=== PATIENT | female | born 1950 ===

== ENCOUNTER 2017-03-17 16:23 | Inpatient (IN) | payer OTHER ==
[2017-03-17] VITALS (7 sets, daily range): BP systolic 116–131; BP diastolic 60–71
[~2017-03-17] VITALS: Ht 157.5 cm; Wt 66.5 kg
--- NOTE | ~2017-03-17 | EC ---
PATIENT:STEVE HANCOCK DATE OF SERVICE: 03/17/17 SEX: F MEDICAL RECORD: [id number] DATE OF : 54 LOCATION:[place] [address] AGE OF PATIENT: 66 ADMISSION DATE: 03/17/17 REFERRING PHYSICIAN: INTERPRETING PHYSICIAN: DAMIÁN LLANOS M.D. ECHOCARDIOGRAM REPORT ECHO CHARGES 4 ECHO COMPLETE CLINICAL DIAGNOSIS: ACUTE ANTERIOR MS ECHOCARDIOGRAPHIC MEASUREMENTS (adult normal given) AC root (d.<3.7cm) 2.7 LV Septum d (<1.2 cm> 1.4 Valve Excursion 1.4 LV Septum (systole) 1.6 Left Atria (s.<4.0cm> 3.1 LVPW d(<1.2cm) 1.4 RV (d.<2.3cm) 2.8 LVPW (sytole) 1.5 LV diastole(<5.6CM) 4.6 MV E-F(>70mm/sec) LV systole 3.5 LVOT Diameter 1.7 MV exc.(>10mm) 1.3 Est.ejection fraction (50-75%) Pericardial Effusion N DOPPLER: LVIT A 93.0 E 52.0 LA RVSP 17 LVOT 96 AOP1/2T Asc. Ao 126 RVOT 85 RA PA 130 AV Gradient Peak 6.33 AV Mean 3.15 AV Area 1.5 MV Gradient Peak 4.37 MV Mean 1.33 MV Area COMMENTS: Vp Project: Radha GARCIA Director Data Management:2 Dr. Llanos TAPE# PACS DATE OF SERVICE: 03/18/2017 INDICATION: Status post anterior wall myocardial infarction. DESCRIPTION: Left ventricle demonstrates left ventricular hypertrophy. The septum and apex are moderately hypokinetic. Estimated ejection fraction is in the order of 40%. Mitral valve is structurally normal. There is no regurgitation or prolapse seen. Left atrium is normal size. The aortic valve is trileaflet. I do not see stenosis or regurgitation. Right ventricle is mildly dilated. Tricuspid valve is structurally normal. There is trivial ECHOCARDIOGRAM REPORT [id number] STEVE HANCOCK regurgitation seen. Right atrium is normal size. There is no pericardial effusion noted. IMPRESSION: 1. Left ventricular hypertrophy with moderate left ventricular dysfunction. Ejection fraction of 40%. The apex and septum are hypokinetic consistent with recent myocardial infarction. 2. Trivial tricuspid regurgitation. TRANSINT:[id number] Voice Confirmation ID: [id number] DOCUMENT ID: [id number] DAMIÁN LLANOS M.D. CC: [id number] DICTATION DATE: 03/18/17 1159 WOMEN'S GARMENT FITTER: 03/18/17 1206 ADM IN [facility] [address] [place] [id number]
--- NOTE | ~2017-03-17 | HEMODYNAMI ---
PATIENT:STEVE HANCOCK MEDICAL RECORD: [id number] : 54 LOCATION:[facility]# [id number] ADMISSION DATE: 03/17/17 Generatedon:03/17/201717:38 Patient name: STEVE HANCOCK Patient #: [id number] SSN: [id number] : 1950 Date of study: 03/17/2017 Page: Of Hemodynamic Procedure Report Patient Data Patient Demographics Procedure consent was obtained First Name: STEVE Gender: Female Last Name: KARISSA : 1950 Patient #: [id number] Age: 66 year(s) Race: Unknown SSN: [id number] Additional ID: [id number] Contact details [address]: [address] [place] [address] State: [place] City: [place] Zip code: [address] Admission Admission Data Admission Date: 03/17/2017 Admission Time: 16:23 Arrival Date: 03/17/2017 Arrival Time: 16:23 Admit Source: Other Weight (lbs.): 164 Weight (kg.): 74.39 Lab Results Lab Result Date: 03/17/2017 Lab Result Time: 0:00 Biochemistry Name Units Result Min Max BUN mg/dl 18 --(---*)-- 7 18 Creatinine mg/dl 0.9 --(-*--)-- 0.6 1.3 CBC Name Units Result Min Max Hemoglobin g/dl 14.6 --(-*--)-- 13.5 17.5 Procedure Procedure Types Cath Procedure Diagnostic Procedure LHC LHC w/Coronaries PCI Procedure AMI-BMS/YANIRA Initial Miscellaneous Procedures Moderate Sedation up to 30 minutes Procedure Description Procedure Date Procedure Date: 03/17/2017 Procedure Start Time: 17:05 Procedure End Time: 17:31 Procedure Staff Name Function David Arevalo MD Performing Physician Reva Luther RT Scrub Car Frausto RN Nurse Ej Forte RT Monitor Indication Angina Procedure Data Cath Procedure Fluoroscopy Diagnostic fluoroscopy Total fluoroscopy Time: 6.4 time: 6.4 min min Diagnostic fluoroscopy Total fluoroscopy dose: dose: 1235 mGy 1235 mGy Contrast Material Contrast Material Type Amount (ml) Isovue 370 208 Entry Location Entry Primary Successful Side Size Upsize Upsize Entry Closure Succes sful Closure Location (Fr) 1 (Fr) 2 (Fr) Remarks Device Remarks Femoral Right 6 Fr Exoseal artery Short Estimated blood loss: 5 ml Diagnostic catheters Device Type Used For End Catheter Placement Cordis 5Fr JL 4.0 Left Coronary Catheter (MP) Angiography Cordis 5Fr 3DRC Catheter Right Coronary (MP) Angiography Cordis 5Fr Pigtail LV Angiography Catheter (MP) Procedure Complications No complications Procedure Medications Medication Administration Route Dosage Oxygen NC 2 l/min Lidocaine 2% added to field 20 Heparin Flush Bag added to field 2 bags (1000units/500ml NS) 0.9% NaCl I.V. 100 ml/hr Solumedrol I.V. 125 mg Versed I.V. 1 mg Fentanyl I.V. 50 mcg Heparin Bolus I.V. 5000 units Nitroglycerin IC/IA I.C. 100 mcg Versed I.V. 1 mg Fentanyl I.V. 50 mcg Nitroglycerin IC/IA I.C. 100 mcg Integrilin (Bolus I.V. 6.8 ml 2mg/ml) Brilinta P.O. 180 mg Hemodynamics Rest HGB: 14.6 (g/dl) Heart Rate: 73 (bpm) Pressure Samples Time Site Value (mmHg) Purpose Heart Use Rate(bpm) 17:27 LV 137/12,30 Snapshot 78 17:27 AO 142/78(107) Pullback 76 17:27 LV 138/14,41 Pullback 76 Gradients Valve Time Site 1 Site 2 Mean SEP/DFP Peak To Heart Use (mmHg) (sec/min) Peak Rate (mmHg) (bpm) Aortic 17:27 LV AO 0 6 0 76 138/14,41 142/78(107) Calculations Valve P-P Mean Valve Index Valve Source Name Gradient Area Flow (cm2) Aortic 0 0 0 0 Snapshots Pre Cath Intra NCS Post Cath Vital Signs Time Heart Resp SPO2 etCO2 IT2rwsq NIBP (mmHg) Rhythm Pain Sedati on Rate (ipm) (%) (mmHg) (mmHg) Status Level (bpm) 17:00:01 78 16 88 0 0 145/89(113) NSR w/ ST 0 (11) 10(A) Elevation , No pain 17:04:13 73 16 98 0 0 162/92(131) NSR w/ ST 0 (11) 10(A) Elevation , No pain 17:08:31 76 17 97 0 0 163/94(138) NSR w/ ST 0 (11) 10(A) Elevation , No pain 17:12:54 76 16 96 0 0 162/83(136) NSR w/ ST 0 (11) 9(A) Elevation , No pain 17:17:08 80 20 96 0 0 145/82(112) NSR w/ ST 0 (11) 9(A) Elevation , No pain 17:21:24 75 17 96 0 0 142/82(117) NSR w/ ST 0 (11) 9(A) Elevation , No pain 17:25:38 80 18 94 0 0 121/70(90) NSR w/ ST 0 (11) 9(A) Elevation , No pain 17:29:46 81 16 94 0 0 131/80(108) NSR 0 (11) 10(A) , No pain Medications Time Medication Route Dose Verified Delivered Reason Notes Effectiveness by by 16:55:49 Solumedrol I.V. 125 David Buffie Per physician mg Viet Frausto RN 16:58:29 Oxygen NC 2 David Buffie used for l/min Viet Frausto RN procedure 16:58:36 Lidocaine 2% added 20ml David David for local to vial Viet Arevalo MD anesthetic field 16:58:42 Heparin Flush added 2 David David used for Bag to bags Viet Arevalo MD procedure (1000units/500ml field NS) 16:58:50 0.9% NaCl I.V. 100 David Buffie Per physician ml/hr Viet Frausto RN 17:07:15 Versed I.V. 1 mg David Buffie for sedation Viet Frausto RN 17:07:20 Fentanyl I.V. 50 David Buffie for sedation mcg Viet Frausto RN 17:11:25 Heparin Bolus I.V. 5000 David Buffie for verifi ed units Viet Frausto RN anticoagulation with dr arevalo 17:17:01 Nitroglycerin I.C. 100 David David for IC/IA mcg Viet Arevalo MD vasodilation 17:19:31 Versed I.V. 1 mg David Thaoie for sedation Viet Frausto RN 17:19:35 Fentanyl I.V. 50 David Buffie for sedation mcg Viet Frausto RN 17:24:23 Nitroglycerin I.C. 100 David David for IC/IA mcg Viet Arevalo MD vasodilation 17:29:04 Integrilin I.V. 6.8 David Thaoie for wasted (Bolus 2mg/ml) ml Viet Frausto RN antiplatelet 3.2 ml therapy of vial 17:32:34 Brilinta P.O. 180 David Car for mg Viet Frausto RN antiplatelet therapy Procedure Log Time Note 16:40:21 Car Frausto RN sent for patient. Start room use. 16:51:50 Informed consent obtained and on chart 16:51:54 Diagnostic Cath Status : Elective 16:52:15 Indication : Angina 16:52:28 Time tracking: Regular hours 16:52:32 Plan of Care:Hemodynamics will remain stable., Cardiac rhythm will remain stable., Comfort level will be maintained., Respiratory function will remain adequate., Patient/ family verbilizes understanding of procedure., Procedure tolerated without complication., Recovers from procedure without complications.. 16:52:39 Patient received from ED to CCL 1 Alert and oriented. Tansferred to table in Supine position. 16:52:40 Warm blankets applied, and ashwin hugger turned on for patient comfort. 16:52:41 Correct patient and procedure confirmed by team. 16:52:41 ECG and BP/O2 sat monitors applied to patient. 16:55:49 Solumedrol 125 mg I.V. was administered by Car Frausto RN; Per physician; 16:58:29 Oxygen 2 l/min NC was administered by Car Frausto RN; used for procedure; 16:58:36 Lidocaine 2% 20ml vial added to field was administered by David Arevalo MD; for local anesthetic; 16:58:42 Heparin Flush Bag (1000units/500ml NS) 2 bags added to field was administered by David Arevalo MD; used for procedure; 16:58:50 0.9% NaCl 100 ml/hr I.V. was administered by Car Frausto RN; Per physician; 16:58:54 Vital chart was started 16:59:06 Baseline sample Acquired. 16:59:11 Rhythm: sinus rhythm , w/ ST elevation 16:59:12 Full Disclosure recording started 16:59:16 H&P Date Dictated: 03/17/2017 New H&P dictated by physician.. 16:59:17 Pre-procedure instructions explained to patient. 16:59:18 Pre-op teaching completed and patient verbalized understanding. 16:59:19 Family in waiting room. 16:59:47 Patient NPO since Midnight. 17:00:53 Is the patient allergic to Iodine/contrast media? Yes. 17:00:54 Was the patient premedicated? Yes 17:01:11 Is patient on blood thinner?Yes 17:01:18 ACC The patient was administered the following blood thiners within the last 24 hours: ACCHeparin 17:01:21 Patient diabetic? Yes. 17:01:22 If diabetic: On Metformin? No 17:01:26 Previous problem with sedation/anesthesia? No ? 17:01:27 Snore? Yes 17:01:31 Sleep apnea? No 17:01:32 Deviated septum? No 17:01:33 Opens mouth fully? Yes 17:01:34 Sticks out tongue? Yes 17:01:36 Airway obstruction? No ? 17:01:39 Dentures? No ? 17:01:46 Pre procedure: right dorsailis pedis pulse 1+ Palpable, but thready & weak; easily obliterated 17:01:50 Patient pain scale 10/10 ?. 17:02:35 IV patent on arrival in right antecubital with 0.9% NaCl at O. 17:02:46 Lab results completed and on chart. 17:02:50 Right groin area was prepped with chlora-prep and draped in sterile fashion 17:02:51 Alarms reviewed by R. N. 17:02:52 Sharps counted by scrub and verified by R.N. 17:02:53 Physician arrived 17:02:53 --------ALL STOP TIME OUT------ 17:02:54 Final Timeout: patient, procedure, and site verified with staff and physician. All members of the team are in agreement. 17:02:57 Right groin site verified by team. 17:03:00 Physical assessment completed. ASA score P 2 - A patient with mild systemic disease as per David Arevalo MD. 17:03:05 Sedation plan: IV Moderate Sedation Versed, Fentanyl 17:05:12 Procedure started. 17:05:14 Use device set Femoral Dx 17:05:15 Acist Syringe opened to sterile field. 17:05:16 Bag Decanter opened to sterile field. 17:05:16 Medline Cath Pack opened to sterile field. 17:05:17 St Sukhjinder 260cm J .035 wire opened to sterile field. 17:05:18 Acist Hand Control opened to sterile field. 17:05:18 Acist Manifold opened to sterile field. 17:05:19 Diagnostic Infinity 5Fr Multipack catheter opened to sterile field. 17:05:19 Tegaderm 4 x 4 opened to sterile field. 17:05:35 Local anesthetic to right femoral artery with Lidocaine 2% by David Arevalo MD.INITIAL ACCESS ONLY 17:05:43 A 6 Fr Short sheath was inserted into the Right Femoral artery 17:06:21 Routeware BMW [place] 2 J-tip 300cm 0.014 guide wir opened to sterile field. 17:06:21 Rooster Teeth BasixCompak Inflation Kit opened to sterile field. 17:06:22 High Pressure Extension Tubing (Viet) opened to sterile field. 17:06:56 A Cordis 5Fr JL 4.0 Catheter (MP) was advanced over the wire and used for Left Coronary Angiography. 17:07:15 Versed 1 mg I.V. was administered by Car Frausto RN; for sedation; 17:07:19 LCA angiography performed. 17:07:20 Fentanyl 50 mcg I.V. was administered by Car Frausto RN; for sedation; 17:07:22 Injector settings: Ml/sec: 3, Volume: 6, 17:07:51 Cordis 6FR XBLAD 3.5 guide catheter opened to sterile field. 17:07:57 Catheter removed. 17:08:02 A Cordis 5Fr 3DRC Catheter (MP) was advanced over the wire and used for Right Coronary Angiography. 17:09:18 RCA angiography performed. 17:09:21 Injector settings: Ml/sec: 3, Volume: 6, 17:10:05 Patient Weight : 164 kg 17:10:05 Admit Source: Other 17:10:07 Arrival Date: 03/17/2017 4:23:00 PM 17:10:26 Catheter removed. 17:10:27 Proceeding to intervention. 17:10:38 6 Fr xblad 3.5 guide catheter was inserted over the wire 17:11:25 Heparin Bolus 5000 units I.V. was administered by Car Frausto RN; for anticoagulation; verified with dr arevalo 17:12:15 bmw wire advanced. 17:13:46 Inflation number: 1 A [place] Sci Brooks 2.0 X 15 balloon was prepped and advanced across the Mid LAD, then inflated to 12 ARELY for 0:10 (min:sec). 17:14:16 Inflation number: 2 The [place] Sci Brooks 2.0 X 15 balloon was reinflated across the Mid LAD, to 9 ARELY for 0:10 (min:sec). 17:15:56 Balloon removed over the wire. 17:17:01 Nitroglycerin IC/IA 100 mcg I.C. was administered by David Arevalo MD; for vasodilation; 17:19:31 Versed 1 mg I.V. was administered by Car Frausto RN; for sedation; 17:19:35 Fentanyl 50 mcg I.V. was administered by Car Frausto RN; for sedation; 17:20:25 Inflation Number: 3 A Medtronic Integrity 2.25 X 26 stent was prepped and advanced across the Mid LAD. The stent was deployed at 12 ARELY for 0:10 (min:sec). 17:21:35 Stent catheter was removed intact over wire. 17:23:44 Inflation Number: 1 A Medtronic Integrity 2.5 X 12 stent was prepped and advanced across the Prox LAD. The stent was deployed at 10 ARELY for 0:10 (min:sec). 17:24:23 Nitroglycerin IC/IA 100 mcg I.C. was administered by David Arevalo MD; for vasodilation; 17:26:04 Stent catheter was removed intact over wire. 17:26:06 Wire removed. 17:26:06 Guide catheter removed. 17:26:16 A Cordis 5Fr Pigtail Catheter (MP) was advanced over the wire and used for LV Angiography. 17:27:24 LV hemodynamics recorded. 17:27:26 LV gram done using POLLARD 17:27:29 Injector settings: Ml/sec: 5, Volume: 15, 17:27:36 EF : 30 % 17:27:53 Catheter removed. 17:28:39 Cordis 6Fr Exoseal opened to sterile field. 17:28:51 Sheath removed intact; hemostasis achieved with Exoseal to the Right Femoral artery. 17:29:04 Integrilin (Bolus 2mg/ml) 6.8 ml I.V. was administered by Car Frausto RN; for antiplatelet therapy; wasted 3.2 ml of vial 17:29:06 Procedure ended.(Physican Out) 17:29:37 Fluoroscopy time 06.40 minutes. 17::43 Flurop Dose total: 1235 17::43 Fluoroscopy dose: 1235 mGy 17:29:50 Contrast amount:Isovue 370 208ml. 17:29:52 Sharps counted by scrub and verified by R.N. 17:30:07 Insertion/operative site no bleeding no hematoma. 17:30:10 Post-op/insertion site Right Femoral artery dressed using a 4 x 4 and Tegaderm. 17:30:13 Post right femoral artery:stable 17:30:14 Post Procedure Pulses reassessed and unchanged 17:30:18 Post procedure rhythm: unchanged. 17:30:20 Estimated blood loss: 5 ml 17:30:22 Post procedure instruction explained to patient.Patient verbalizes understanding. 17:30:22 Patient needs reinforcement of post procedure teaching. 17:30:39 Procedure type changed to Cath procedure, Diagnostic procedure, LHC, LHC w/Coronaries, PCI procedure, AMI-BMS/YANIRA Initial, Miscellaneous Procedures, Moderate Sedation up to 30 minutes 17:31:17 Procedure and supply charges have been captured, reviewed, submitted and are correct. 17:31:23 Procedure Complication : No complications 17:31:25 Vital chart was stopped 17:31:26 See physician's report for complete and final results. 17:31:29 Report given to CVICU. 17:31:32 Patient transfered to CVICU with Stretcher. 17:31:36 Procedure ended. 17:31:36 Full Disclosure recording stopped 17:32:01 ACC-PCI Only Patient was given prescriptions, or instructed by David Arevalo MD to start/continue the following medications upon discharge: Brilinta 17:32:10 End room use (Document Last) 17:32:34 Brilinta 180 mg P.O. was administered by Car Frausto RN; for antiplatelet therapy; 17:37:20 Lab Result : Creatinine 0.9 mg/dl 17:37:20 Lab Result : BUN 18 mg/dl 17:37:20 Lab Result : Hemoglobin 14.6 g/dl Intervention Summary Intervention Notes Time ActionType Lesion and Equipment Action# Pressure Duration Attributes Used 17:13:46 Inflate Mid LAD [place] 1 12 00:10 balloon Sci Brooks 2.0 X 15 balloon 17:14:16 Reinflate Mid LAD [place] 2 9 00:10 balloon Sci Brooks 2.0 X 15 balloon 17:20:25 Place stent Mid LAD Medtronic 3 12 00:10 Integrity 2.25 X 26 stent 17:23:44 Place stent Prox LAD Medtronic 1 10 00:10 Integrity 2.5 X 12 stent Device Usage Item Name Manufacture Quantity Catalog Number Hospital Part Current Mini mal Lot# / Charge Number Stock Stock Serial# Code Acist Acist 1 90870 216917 674218 704913 20 Syringe Medical Systems Inc Bag Microtek 1 2002S 072518 04721 457952 5 Pipewise Inc. Medline Cardinal 1 [id number] 991118 15823 021486 [address] Sukhjinder 1 747281 332078 177030 896984 30 260cm J .035 wire Acist Hand Acist 1 51285 150955 203203 082637 5 Control Medical Systems Inc Acist Acist 1 24898 598500 675326 519528 5 Manifold Medical Systems Inc Diagnostic Cardinal 1 BP9455 512056 69437 205569 30 Infinity Health 5Fr Multipack catheter Tegaderm 4 3M 1 1626W 404419 996633 944474 5 x 4 Mai BMW Mai 1 [id number] 219266 633167 097598 5 [place] 2 Vascular J-tip 300cm 0.014 guide wir Merit Merit 1 RP0500 418960 846788 260926 15 DoubleDutch Medical Inflation Kit High Merit 1 [id number] 618238 52344 425630 10 Pressure Medical Extension Tubing (Arevalo) Cordis 5Fr Cardinal 1 071748 5 JL 4.0 Health Catheter (MP) Cordis 6FR Cardinal 1 [id number] 134682 145608 434729 10 XBLAD 3.5 Health guide catheter Cordis 5Fr Cardinal 1 267292 5 3DRC Health Catheter (MP) [place] Sci [place] 1 [id number] 350082 608294 605799 1 [id number] Lagoa Scientific 2.0 X 15 balloon Medtronic Medtronic 1 [id number] 302929 987638 7 [id number] Integrity 2.25 X 26 stent Medtronic Medtronic 1 [id number] 683133 939917 3 [id number] Integrity 2.5 X 12 stent Cordis 5Fr Cardinal 1 164387 5 Pigtail Health Catheter (MP) Cordis 6Fr Cardinal 1 EX600 345745 602651 346480 10 Vurb Signature Audit [place] Stage Time Signature Unsigned Intra-Procedure 03/17/2017 Reva Luther 5:38:24 PM RT(R) Signatures Monitor : Ej Forte RT Signature : Date : Time : [address] [address]
[2017-03-17 17:07] LABS: BASOPHILS 0.7 % (0-2); EOSINOPHILS 3.2 % (0-7); HEMATOCRIT 41.6 % (36.0-48.0); HEMOGLOBIN 14.6 g/dL (12-16); IMMATURE GRANULOCYTES 0.1 % (0-5); LYMPHOCYTES 27.4 % (15-50); MCH 31.1 pg (26.0-34.0); MCHC 35.1 g/dL (31.0-37.0); MCV 88.7 fL (80.0-100.0); MEAN PLATELET VOLUME 10.2 fL (7.4-10.4); NEUTROPHILS 52.6 % (40-80); PLATELET COUNT 280 10x3/uL (130-400); RBC 4.69 10x6/uL (4.00-5.40); RDW 13.3 % (11.5-14.5); WBC 6.9 10x3/uL (4.8-10.8)
[2017-03-17 17:28] LABS: ANION GAP 13.9 mmol/L (8-16); CALCIUM 8.6 mg/dL (8.5-10.1); CARBON DIOXIDE 24.5 mmol/L (21.0-32.0); CREATININE - SERUM 0.9 mg/dL (0.6-1.3); POTASSIUM - SERUM 3.4 mmol/L (3.5-5.1)
[2017-03-17 17:37] LABS: ALBUMIN 3.5 g/dL (3.4-5.0); ALKALINE PHOSPHATASE 130 U/L (46-116); ALT (SGPT) 28 U/L (10-68); BILIRUBIN - TOTAL 0.48 mg/dL (0.2-1.3); CALC OSMOLALITY 279 mosm/kg (275-300); CALCIUM 8.4 mg/dL (8.5-10.1); CARBON DIOXIDE 25.6 mmol/L (21.0-32.0); CHLORIDE - SERUM 101 mmol/L (98-107); CREATININE - SERUM 0.9 mg/dL (0.6-1.3); GLUCOSE 178 mg/dL (74-106); POTASSIUM - SERUM 3.3 mmol/L (3.5-5.1); PROTEIN - SERUM 6.9 g/dL (6.4-8.2); SODIUM 137 mmol/L (136-145); UREA NITROGEN 18 mg/dL (7-18); eGFR NON AFRICAN AMERICAN 67 mL/min (90-120)
[2017-03-17 17:53] LABS: CHOLESTEROL, TOTAL 190 mg/dL (0-200); CKMB 5.8 U/L (0.0-3.6); CREATINE KINASE 110 UL (21-215); HDL CHOLESTEROL 63 mg/dL (32-96); LDL CHOLESTEROL 103 mg/dL (0-100); LDL-HDL RATIO 1.6 ratio (1.5-3.5); TRIGLYCERIDE 121 mg/dL (30-200)
--- NOTE | 2017-03-17 17:55 | NUR ---
RECEIVED PT TO ROOM CV08 VIA BED. CVICU MONITORS CONNECTED. FEMSTOP ON RIGHT GROIN, TO BE REMOVED AT 1900 PER [facility] [employer] ARCHITECT STAFF.
[2017-03-17 18:00] LABS: TROPONIN-I 0.106 ng/mL (0.000-0.060)
--- NOTE | 2017-03-17 18:06 | NUR ---
DR JAY AT BEDSIDE.
--- NOTE | 2017-03-17 18:07 | NUR ---
DR JAY NOTIFIED OF ABSENT PEDAL PULSES ON THE RIGHT SIDE.
--- NOTE | 2017-03-17 18:08 | NUR ---
RIGHT PEDAL PULSE VIA DOPPLER WHEN PRESSURE DECREASED ON FEMSTOP.
--- NOTE | 2017-03-17 18:25 | NUR ---
FAMILY AT BEDSIDE CONVERSING WITH PATIENT.
--- NOTE | 2017-03-17 18:28 | NUR ---
PT'S PURSE TAKEN HOME BY MI HANCOCK.
[2017-03-17] MEDS ORDERED: ALDACTONE25 MG PO (18:55)
[2017-03-17] MEDS ORDERED: ACEBUTOLOL HCL200 MG PO (18:55)
[2017-03-17] MEDS ORDERED: GLUCOTROL 5 MG T5 MG PO (18:56)
[2017-03-17] MEDS ORDERED: NORVASC2.5 MG PO (18:56)
[2017-03-17] MEDS ORDERED: GLIPIZIDE10 MG PO (18:57)
--- NOTE | 2017-03-17 19:30 | NUR ---
Received patient awake in bed with at bedside, Assessment completed per flowsheet. Patient AO x4, calm and cooperative. Eyes PERRLA @ 3mm with brisk response, patient wears glasses. S1/S2 noted NSR on telemetry with HR 87, rhythmic and regular. Breathing is even and unlabored on 2L via NC, lung sounds clear bilateral upper with slightly diminished lower. Abdomen is soft and flat, non-tender with bowel sounds active x4. Flores secured in place, clear yellow urine noted in collection bag. Full ROM upper extremities and L lower, R lower kept straight from Cath procedure. R groin incision with Femstop/dressing CDI, site is soft to palpation with no bleeding noted. All pulses palpable with cap refill <3 sec, skin warm/dry to touch. 20g PIV noted R AC, dressing intact with fluids infusing. Patient denies pain or other needs at this time, all VSS and will continue to monitor.
--- NOTE | 2017-03-17 23:30 | NUR ---
Reassessment completed per flowsheet, patient resting in bed with eyes closed. S1/S2 noted with NSR on telemetry with HR 74, rhythmic and regular. Breathing is even and unlabored on 2L via NC, O2 sat 94%. R groin incision dressing CDI, site soft to palpation with no bleeding noted. All pulses palpable with Cap refill <3 sec. Patient denies pain or other needs at this time, all VSS and will continue to monitor.
[2017-03-18] VITALS (17 sets, daily range): BP systolic 108–134; BP diastolic 55–70; Ht 157.5 cm; Wt 66.5 kg
--- NOTE | 2017-03-18 01:00 | NUR ---
IV site R AC bleeding, D/C and wrapped with Coban. R groin cath site dressing CDI with no bleeding noted, all pulses palpable. Will continue to monitor.
--- NOTE | 2017-03-18 03:16 | NUR ---
Reassessment completed per flowsheet, patient resting in bed with eyes closed. S1/S2 noted NSR on telemetry with HR 78, rhythmic and regular. Breathing is even and unlabored on 2L via NC, O2 sat 95%. R groin cath site soft to palpation with no bleeding noted, dressing CDI. All pulses palpable with cap refill <3 sec. Patient states pain in mid chest /, repositioned for comfort with patient stating relief. No further needs at this time, all VSS and will continue to monitor.
--- NOTE | 2017-03-18 06:18 | OP ---
PATIENT NAME: STEVE HANCOCK MEDICAL RECORD: [id number] :54 LOCATION:[facility] .CV08 ADMISSION DATE:03/17/17 SURGEON: DAMIÁN JAY M.D. DATE OF OPERATION: 03/17/2017 PROCEDURES PERFORMED: 1. Selective coronary angiography. 2. Left heart catheterization with ventriculogram. 3. PTCA and stent placed in LAD. INDICATION: A 66-year-old presents with acute anterior wall myocardial infarction. EQUIPMENT USED: Diagnostic 5-Lithuanian JL4, Michael right, pigtail catheter. INTERVENTION: A 6-Lithuanian XB LAD guide, BMW guide wire, 2.0 x 15 mm Garden balloon, 2.25 x 26 mm Integrity stent, 2.5 x 12 mm Integrity stent. TECHNIQUE: A 6-Lithuanian sheath was inserted in retrograde fashion in the right common femoral artery. Next, selective coronary angiography was performed in standard 5-Lithuanian JL4 and Michael right. Left heart catheterization performed using pigtail catheter. CORONARY ANATOMY: 1. Left main: Left main trunk is moderate in caliber. It gives rise to the LAD and circumflex. It has no obstruction. 2. LAD: This vessel is 100% occluded in the mid segment. 3. Circumflex: This vessel is large in caliber and dominant. The bifurcation point, the first lateral branch has a 60% to 70% stenosis. The distal vessel has an 80% to 90% stenosis was then angulated area, the vessel is quite small at this point. 4. Right coronary: This vessel is nondominant. It is diffusely diseased. 5. Left ventricle: Left ventricle is normal in size. The apex and distal anterior wall are severely hypokinetic. Its ejection fraction is in the order of 30% to 35%. DESCRIPTION OF INTERVENTION: A 5000 units of heparin was infused. The patient received 5000 units in the Emergency Room. A 6-Lithuanian XB LAD guide was advanced and engaged in the left main coronary artery. Next, a BMW wire was used to cross the occlusion placed in the distal LAD. The proximal vessel was predilated with a 2.0 x 15 mm Garden balloon at 10 atmospheres. ____ samaritan of flow a long diseased area involving the proximal mid LAD. A 2.25 x 26 mm Integrity stent was placed in the mid LAD and deployed at 10 atmospheres. However, proximal stent, there is an area of ulceration. It was not covered by the stent. A 2.5 x 12 mm Integrity stent was placed in overlapping fashion. This stent was deployed at 10 atmospheres as well. Injection revealed both stents to be widely patent with 0% residual stenosis. There is marked improvement in distal flow of the LAD. At this point, the wire and guidewire were removed. IMPRESSION: Successful percutaneous transluminal coronary angioplasty and stent in the LAD with 0% residual stenosis. TRANSINT:[id number] Voice Confirmation ID: [id number] DOCUMENT ID: [id number] OPERATIVE REPORT [id number] STEVE HANCOCK,DAMIÁN Gallagher M.D. at 0618 CC: [id number] DICTATION DATE: 03/17/171736 PATIENT SAFETY MANAGER: 03/18/17 0049 [facility] IN [facility] [address] [place] [address]
--- NOTE | 2017-03-18 07:00 | NUR ---
REC'D REPORT AND RESUMED CARE, AAO, VSS, O2 VIA NC AT 2L, SAT 98%, RIGHT AC WITH COBAN DRESSING IN PLACE BLOODY DRAINAGE OOZING, DRESSING OFF AND REPLACED WITH GAUZE DRESSING AND MEDIPORE TAPE, EDUCATED PATIENT ON KEEING ARM BENT FOR 5-10 MINUTES, VERBALIZED UNDERSTANDING, B/L PEDAL PULSES PALPABLE, EXTREMITIES WARM AND PINK, ASSESSMENT COMPLETE PER FLOWSHEET, C/O OF CHEST PAIN 02/08, SHIREEN AND COMES, CALL LIGHT IN REACH, VOICES NO NEEDS AT THIS TIME
--- NOTE | 2017-03-18 08:15 | NUR ---
BREAKFAST TRAY TO BEDSIDE, INDEPENDENT WITH SET UP AND EATING, HX OF DM, FSBS 183, WILL NOTIFY MD FOR S/S
--- NOTE | 2017-03-18 09:50 | NUR ---
AM MEDS GIVEN WITHOUT DIFFICULTY, COREG HELD AWAITING REVIEW FROM DR JAY
--- NOTE | 2017-03-18 11:00 | NUR ---
NO ACUTE CHANGE FROM PREVIOUS ASSESSMENT, VSS, ECHO COMPLETED,
--- NOTE | 2017-03-18 11:30 | NUR ---
BATH AND LINEN CHANGE COMPLETED, TOLERATED WITHOUT DIFFICULTY, OOB TO CHAIR, CALL LIGHT IN REACH, VOICES NO OTHER NEEDS AT THIS TIME
--- NOTE | 2017-03-18 12:00 | NUR ---
SPOUSE AT BEDSIDE, STATUS UPDATED, VOICES NO NEEDS AT THIS TIME, LUNCH TRAY TO BEDSIDE, NO NEEDS AT THIS TIME
--- NOTE | 2017-03-18 12:45 | NUR ---
40 MEQ KCL PO GIVEN PER ELYTE PROTOCAL, 6 UNITS HUMALOG TO RIGHT DELTOID PER INSULIN S/S
--- NOTE | 2017-03-18 15:00 | NUR ---
RESTING WITH NO SIGNS OF DISTRESS, VSS, NO ACUTE CHANGE FROM PREVIOUS
--- NOTE | 2017-03-18 17:10 | NUR ---
FSBS 188, 2 UNITS HUMALOG GIVEN PER S/S
--- NOTE | 2017-03-18 18:00 | NUR ---
SPOUSE AT BEDSIDE, STATUS UPDATED, VOICES NO NEEDS AT THIS TIME, PATIENT AAO, CALL LIGHT IN REACH, AWAITING TRANSFER OUT OF CVICU, REPEAT POTASSIUM LEVEL ORDERED AND LAB CALLED FOR DRAW
--- NOTE | 2017-03-18 18:38 | NUR ---
LAB PERSONNEL HERE FOR POTASSIUM DRAW, COMPLETED AND TAKEN TO LAB
--- NOTE | 2017-03-18 19:17 | NUR ---
REPORT RECIEVED. ASSESSMENT COMPLET EPER FLOW SHEET. VSS. DENIES NEEDS OR PAIN. GIVEN ICE WATER FOR COMFORT. WILL CONTINUE TO MONITOR.
--- NOTE | 2017-03-18 22:50 | NUR ---
DR MISTY DELATORRE, DR HUFF T ORDER FOR [facility] FOR PAIN. WILL ADM. DENIES FURTHER NEEDS.
--- NOTE | 2017-03-18 23:16 | NUR ---
PT UP OOB TO COMMODE. DENIES FURTHER NEEDS.
--- NOTE | 2017-03-19 03:36 | NUR ---
RECEIVED PT FROM CVICU VIA WHEELCHAIR, ACCOMPANIED BY HOSPITAL STAFF. PLACED ON TELEMETRY AND ORIENTED TO FLOOR. CALL LIGHT IN REACH. NO NEEDS VOICED AT THIS TIME. WILL CONTINUE TO MONITOR.
[2017-03-19 04:13] VITALS: BP 119/63
--- NOTE | 2017-03-19 07:03 | NUR ---
NO CHANGES FROM PREVIOUS ASSESSMENT, CALL LIGHT IN REACH.
[2017-03-19 08:08] VITALS: BP 94/49
[2017-03-19 11:24] VITALS: BP 133/61
[2017-03-19] MEDS ORDERED: COREG 3.1253.125 MG PO (14:14)
[2017-03-19] MEDS ORDERED: BRILINTA90 MG PO (15:36)
[2017-03-19 15:39] VITALS: BP 133/78
--- NOTE | 2017-03-19 16:10 | NUR ---
IV AND TELEMETRY DCD. DC PLANS GIVEN. UNDERSTANDING VOICED. ESCORTED TO CAR BY W/C.
--- NOTE | 2017-03-19 16:20 | NUR ---
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 Yes 0 * How many steps to enter\exit or inside your home? 1 0 * PCP DR. LUNA ESCALERA 0 * Pharmacy [facility] 0 * Preadmission Environment Home with Family 0 * ADLs Independent 0 * Equipment None 0 * Other Equipment [facility] - MEDICAL EQUIPMENT PROVIDER PREFERENCE 0 * List name and contact numbers for known caregivers / representatives who currently or will assist patient after discharge: MI HANCOCK, SPOUSE, 0 * Community resources currently utilized None 0 * Please name any agencies selected above. NONE 0 * Additional services required to return to the preadmission environment? No 0 * Can the patient safely return to the preadmission environment? Yes 0 * Has this patient been hospitalized within the prior 30 days at any hospital? No 0 CM MET WITH PT AND SPOUSE IN ROOM TO DISCUSS DISCHARGE PLANNING AND NEEDS. PT REPORTS LIVING AT HOME INDEPENDENTLY WITH SPOUSE. PT HAS NO MEDICAL EQUIPMENT AND NO OUTSIDE SERVICES ASSISTING IN THE HOME. CM DISCUSSED AVAILABILITY OF HOME HEALTH, REHAB SERVICES AND MEDICAL EQUIPMENT. PT DENIES DISCHARGE NEEDS, REPORTS HER SPOUSE IS HERE TO PICK HER UP FOR DISCHARGE HOME TODAY. Home Care Administrator: Praveen Allan
== END 2017-03-19 16:19 | disposition home or self-care (01) | DRG 249 ==
LOC: D.ER 16:23 → D.CVICU 17:44 → D.M2 03-19 03:31
PROVIDERS: Family Medicine; ADMIT Internal Medicine Cardiovascular Disease
PROC: B2111ZZ Fluoroscopy of Multiple Coronary Arteries using Low Osmolar Contrast (ICD-10-PCS; 2017-03-17)
PROC: B2151ZZ Fluoroscopy of Left Heart using Low Osmolar Contrast (ICD-10-PCS; 2017-03-17)
PROC: 02703EZ Dilation of Coronary Artery, One Artery with Two Intraluminal Devices, Percutaneous Approach (ICD-10-PCS; principal; 2017-03-17 14:45)
PROC: 4A023N7 Measurement of Cardiac Sampling and Pressure, Left Heart, Percutaneous Approach (ICD-10-PCS; 2017-03-17 14:45)
DX: I21.09 ST elevation (STEMI) myocardial infarction involving other coronary artery of anterior wall (principal); I10 Essential (primary) hypertension; E11.9 Type 2 diabetes mellitus without complications

== ENCOUNTER → 2018-09-29 08:48 | Outpatient (CLI) | payer MEDICARE ==
[2017-03-18 12:10] VITALS: BMI 30.9
[~2018-09-29 08:48] MED LIST: ACEBUTOLOL HCL200 MG PO; ALDACTONE25 MG PO; BRILINTA90 MG PO; COREG 3.1253.125 MG PO; GLIPIZIDE10 MG PO; GLUCOTROL 5 MG T5 MG PO; NORVASC2.5 MG PO
== END | disposition home or self-care (01) ==
LOC: D.HCCARDIO 08:48
DX: I25.10 Atherosclerotic heart disease of native coronary artery without angina pectoris (principal)

== ENCOUNTER 2018-10-11 11:51 | Outpatient (CLI) | payer MEDICARE ==
[~2018-10-11] VITALS: Ht 157.5 cm; Wt 72.7 kg
--- NOTE | ~2018-10-11 | HEMODYNAMI ---
PATIENT:STEVE HANCOCK MEDICAL RECORD: [id number] : 54 LOCATION:[facility] ADMISSION DATE: 10/11/18 Generatedon:10/11/201815:04 Patient name: STEVE HANCOCK Patient #: [id number] SSN: [id number] : 1950 Date of study: 10/11/2018 Page: Of Hemodynamic Procedure Report Patient Data Patient Demographics Procedure consent was obtained First Name: STEVE Gender: Female Last Name: KARISSA : 1950 Middle Initial: DARION Age: 68 year(s) Patient #: [id number] Race: Unknown SSN: [id number] Additional ID: [id number] Contact details [address]: [address] [place] [address] State: [place] City: [place] Zip code: [address] Past Medical History Allergies Allergen Reaction Date Comments Reported Other allergy 10/11/2018 ACCUPRIL, ALDOMET, AMOXIL, APRESOLINE, BARIUM IODIDE, BUSPAR, DIBENZYLINE, ERYTHROMYCIN BASE, INVOKANA, IODINE, METFORMIN, MINIPRESS, NORMODYNE, PCN, PROCARDIA, TENEX, TENORMIN Admission Admission Data Admission Date: 10/11/2018 Admission Time: 11:51 Height (in.): 63 BSA: 1.75 (m2) Height (cm.): 160.02 BMI: 27.99 (kg/m2) Weight (lbs.): 158 Weight (kg.): 71.67 Lab Results Lab Result Date: 10/11/2018 Lab Result Time: 0:00 Biochemistry Name Units Result Min Max BUN mg/dl 21 --(----)-* 7 18 Creatinine mg/dl 0.8 --(-*--)-- 0.6 1.3 CBC Name Units Result Min Max Hemoglobin g/dl 16.5 --(--*-)-- 13.5 17.5 Procedure Procedure Types Cath Procedure Diagnostic Procedure [facility] w/Coronaries Sedation Charges Moderate Sedation up to 15 minutes Procedure Description Procedure Date Procedure Date: 10/11/2018 Procedure Start Time: 14:39 Procedure End Time: 15:00 Procedure Staff Name Function David Llanos MD Performing Physician Magi Stephens RT Monitor Heath Kenny RN Nurse Shannon Nichols RT Scrub Donald Villagran RT Lead Fabricator Procedure Data Cath Procedure Fluoroscopy Diagnostic fluoroscopy Total fluoroscopy Time: 1.8 time: 1.8 min min Diagnostic fluoroscopy Total fluoroscopy dose: 475 dose: 475 mGy mGy Contrast Material Contrast Material Type Amount (ml) Isovue 300 48 Entry Location Entry Primary Successful Side Size Upsize Upsize Entry Closure Succes sful Closure Location (Fr) 1 (Fr) 2 (Fr) Remarks Device Remarks Femoral Right 5 Fr Exoseal artery Estimated blood loss: 5 ml Diagnostic catheters Device Type Used For End Catheter Placement MULTIPACK JL 4.0 5Fr Procedure catheter MULTIPACK 3DRC 5Fr Procedure catheter MULTIPACK Pigtail 5 Fr Procedure catheter Procedure Complications No complications Procedure Medications Medication Administration Route Dosage 0.9% NaCl I.V. 100 ml/hr Oxygen etCO2 Nasal cannula 2 l/min Heparin Flush Bag added to field 2 bags (1000units/500ml NS) Lidocaine 2% added to field 20 Radial Cocktail added to field 1 syringe (Verapomil 2mg/Nitro 400mcg/Heparin 1500units) Versed I.V. 2 mg Fentanyl I.V. 100 mcg Versed I.V. 1 mg Hemodynamics Rest BSA: 1.75 (m2) HGB: 16.5 (g/dl) O2 Consumption: Estimated: 238 (ml/min) O2 Consu mption indexed: Estimated:136 (ml/min/m) Heart Rate: 0 (bpm) Pressure Samples Time Site Value (mmHg) Purpose Heart Use Rate(bpm) 14:53 LV 108/-4,3 Snapshot 69 Gradients Valve Time Site Site Mean SEP/DFP Peak To Heart Use 1 2 (mmHg) (sec/min) Peak Rate (mmHg) (bpm) Aortic 14:54 LV AO 66 Snapshots Pre Cath Intra NCS Post Cath Vital Signs Time Heart Resp SPO2 etCO2 NIBP (mmHg) Rhythm Pain Sedation Rate (ipm) (%) (mmHg) Status Level (bpm) 14:25:32 63 21 99 0 152/67(112) NSR 0 (11) 10(A) , No pain 14:29:53 60 16 99 33.2 139/69(111) NSR 0 (11) 10(A) , No pain 14:34:12 58 15 96 17.3 131/58(87) NSR 0 (11) 10(A) , No pain 14:38:28 55 17 97 29.4 114/48(82) NSR 0 (11) 10(A) , No pain 14:42:39 58 15 94 24.9 118/56(94) NSR 0 (11) 10(A) , No pain 14:46:48 61 16 93 43.8 111/64(83) NSR 0 (11) 10(A) , No pain 14:51:01 62 17 94 0 113/50(87) NSR 0 (11) 9(A) , No pain 14:55:12 66 15 94 0 111/52(87) NSR 0 (11) 9(A) , No pain 14:59:20 66 14 95 30.2 116/60(91) NSR 0 (11) 9(A) , No pain Medications Time Medication Route Dose Verified Delivered Reason Notes E ffectiveness by by 14:24:52 0.9% NaCl I.V. 100 Heath Heath Per ml/hr Lorigan Lorigan physician RN RN 14:25:01 Oxygen etCO2 2 l/min Heath Heath Per Nasal Lorigan Lorigan physician cannula RN RN 14:25:12 Heparin Flush added 2 bags Heath Heath used for Bag to Lorigan Lorigan procedure (1000units/500ml field RN RN NS) 14:25:22 Lidocaine 2% added 20ml Heath Heath for local to vial Lorigan Lorigan anesthetic field RN RN 14:32:25 Radial Cocktail added 1 Heath Heath used for (Verapomil to syringe Lorigan Lorigan procedure 2mg/Nitro field RN RN 400mcg/Heparin 1500units) 14:35:00 Versed I.V. 2 mg Heath Heath for Lorigan Lorigan sedation RN RN 14:35:29 Fentanyl I.V. 100 mcg Heath Heath for Lorigan Lorigan sedation RN RN 14:41:42 Versed I.V. 1 mg Heath Heath for Lorigan Lorigan sedation RN integrated program teacher Log Time Note 13:58:17 Patient Height : 63 inches 13:58:40 Patient Weight : 158 lbs 14:13:59 Time tracking: Regular hours (M-F 7:00 - 5:00) 14:14:01 Plan of Care:Hemodynamics will remain stable., Cardiac rhythm will remain stable., Comfort level will be maintained., Respiratory function will remain adequate., Patient/ family verbilizes understanding of procedure., Procedure tolerated without complication., Recovers from procedure without complications.. 14:14:14 Donald CALLAHAN(R) sent for patient. Start room use. 14:14:15 Signed procedure consent form obtained from patient. 14:14:39 H&P Date Dictated: 10/11/2018 Within 30 days and on chart., H&P Addendum completed by physician on day of procedure. (MUST COMPLETE FOR ALL OUTPATIENTS). 14:15:58 Patient allergic to Other allergyACCUPRIL, ALDOMET, AMOXIL, APRESOLINE, BARIUM IODIDE, BUSPAR, DIBENZYLINE, ERYTHROMYCIN BASE, INVOKANA, IODINE, METFORMIN, MINIPRESS, NORMODYNE, PCN, PROCARDIA, TENEX, TENORMIN 14:20:09 Patient received from Pre/Post Procedure Room to CCL 2 Alert and oriented. Tansferred to table in Supine position. 14:20:11 Warm blankets applied, and ashwin hugger turned on for patient comfort. 14:20:11 Correct patient and procedure confirmed by team. 14:20:12 ECG and BP/O2 sat monitors applied to patient. 14:24:17 Baseline sample Acquired. 14:24:17 Vital chart was started 14:24:21 Rhythm: sinus rhythm 14:24:22 Full Disclosure recording started 14:24:23 Pre-procedure instructions explained to patient. 14:24:26 Pre-op teaching completed and patient verbalized understanding. 14:24:30 Family in patients room. 14:24:31 Patient NPO since Midnight. 14:24:34 Is the patient allergic to Iodine/contrast media? Yes. 14:24:37 Was the patient premedicated? Yes 14:24:39 Is patient on blood thinner?No 14:24:42 Patient diabetic? Yes. 14:24:47 If diabetic: On Metformin? No 14:24:48 ----Pre-sedation anethsthesia assessment.---- 14:24:52 0.9% NaCl 100 ml/hr I.V. was administered by Heath Kenny RN; Per physician; 14:24:53 Previous problem with sedation/anesthesia? No ? 14:24:56 Snore? No 14:24:58 Sleep apnea? No 14:25:00 Deviated septum? No 14:25:01 Oxygen 2 l/min etCO2 Nasal cannula was administered by Heath Kenny RN; Per physician; 14:25:01 Opens mouth fully? Yes 14:25:03 Sticks out tongue? Yes 14:25:06 Airway obstruction? No ? 14:25:08 Dentures? No ? 14:25:12 Heparin Flush Bag (1000units/500ml NS) 2 bags added to field was administered by Heath eKnny RN; used for procedure; 14:25:13 Pre procedure: right dorsailis pedis pulse 2+ Normal; easily identifiable; not easily obliterated 14:25:18 Modified Marlon's test Ulnar < 7 seconds 14:25:20 Patient pain scale 0/10 ?. 14:25:22 Lidocaine 2% 20ml vial added to field was administered by Heath Kenny RN; for local anesthetic; 14:25:24 IV patent on arrival in left antecubital with 0.9% NaCl at 10ml/hr. 14:28:52 Lab Result : Creatinine 0.8 mg/dl 14:28:52 Lab Result : BUN 21 mg/dl 14:28:52 Lab Result : Hemoglobin 16.5 g/dl 14:29:08 Lab results completed and on chart. 14:29:11 Right Radial & Right Groin area was prepped with chlora-prep and draped in sterile fashion 14:29:11 Alarms reviewed by R. N. 14:29:12 Sharps counted by scrub and verified by R.N. 14:29:15 Use device set Radial Dx or PCI 14:29:16 ACIST Syringe (76399) opened to sterile field. 14:29:17 ACIST Hand Control (67110) opened to sterile field. 14:29:17 ACIST Manifold (15563) opened to sterile field. 14:29:18 Tegaderm 4 x 4 (1626W) opened to sterile field. 14:29:20 Bag Decanter (2002) opened to sterile field. 14:29:21 Medline Cath Pack ([id number]) opened to sterile field. 14:29:21 DIAGNOSTIC WIRE .035 260cm J wire (431026) opened to sterile field. 14:29:22 MBrace Wrist Support ([id number]) opened to sterile field. 14:29:23 SHEATH 6FR Slender (74-5404) opened to sterile field. 14:32:25 Radial Cocktail (Verapomil 2mg/Nitro 400mcg/Heparin 1500units) 1 syringe added to field was administered by Heath Kenny RN; used for procedure; 14:34:02 --------ALL STOP TIME OUT------ 14:34:03 Final Timeout: patient, procedure, and site verified with staff and physician. All members of the team are in agreement. 14:34:04 Right Radial & Right Groin site verified by team. 14:34:07 Physical assessment completed. ASA score P 2 - A patient with mild systemic disease as per David Llanos MD. 14:34:10 Sedation plan: IV Moderate Sedation Medication:Versed, Fentanyl 14:35:00 Versed 2 mg I.V. was administered by Heath Kenny RN; for sedation; 14:35:29 Fentanyl 100 mcg I.V. was administered by Heath Kenny RN; for sedation; 14:38:46 Procedure started. 14:39:20 Local anesthetic to right radial artery with Lidocaine 2% by David Llanos MD.INITIAL ACCESS ONLY 14:40:05 Zero performed for pressure channel P1 14:41:42 Versed 1 mg I.V. was administered by Heath Kenny RN; for sedation; 14:41:57 Baseline sample Acquired. 14:45:02 Use device set Multipack Set 14:45:14 SHEATH 5FR Coleman (DNL262) opened to sterile field. 14:45:16 DIAGNOSTIC Multipack 5Fr catheter set ([id number]) opened to sterile field. 14:45:31 Local anesthetic to right femoral artery with Lidocaine 2% by David Llanos MD.ADDITIONAL ACCESS 14:46:31 A 5 Fr sheath was inserted into the Right Femoral artery 14:47:27 A MULTIPACK JL 4.0 5Fr catheter was advanced over the wire and used for Procedure. 14:49:53 LCA angiography performed. 14:50:08 Catheter exchanged over wire. 14:50:53 A MULTIPACK 3DRC 5Fr catheter was advanced over the wire and used for Procedure. 14:51:34 RCA angiography performed. 14:51:36 Catheter exchanged over wire. 14:52:46 A MULTIPACK Pigtail 5 Fr catheter was advanced over the wire and used for Procedure. 14:52:56 LV gram done using POLLARD 14:52:58 Injector settings: Ml/sec: 10, Volume: 20, 14:53:34 LV hemodynamics recorded. 14:54:04 EF : 40 % 14:56:36 Catheter removed. 14:58:02 EXOSEAL 5Fr (EX500) opened to sterile field. 14:58:15 Sheath removed intact; hemostasis achieved with Exoseal to the Right Femoral artery. 14:58:52 Procedure ended.(Physican Out) 14:59:15 Fluoroscopy time 01.80 minutes. 14:59:20 Flurop Dose total: 475 14:59:20 Fluoroscopy dose: 475 mGy 14:59:36 Contrast amount:Isovue 300 48ml. 14:59:40 Post-op/insertion site Right Femoral artery dressed using a 4 x 4 and Tegaderm. 14:59:43 Post-procedure physical assessment completed. ASA score P 2 - A patient with mild systemic disease as per David Llanos MD. 14:59:46 Post procedure rhythm: sinus rhythm 14:59:49 Estimated blood loss: 5 ml 14:59:50 Post procedure instruction explained to patient.Patient verbalizes understanding. 14:59:51 Patient needs reinforcement of post procedure teaching. 15:00:10 Procedure type changed to Cath procedure, Diagnostic procedure, LHC, LHC w/Coronaries, Sedation Charges, Moderate Sedation up to 15 minutes 15:00:47 Procedure and supply charges have been captured, reviewed, submitted and are correct. 15:00:50 Procedure Complication : No complications 15:00:52 Vital chart was stopped 15:00:52 See physician's report for complete and final results. 15:00:54 Report given to Pre/Post Procedure Room. 15:00:57 Patient transfered to Pre/Post Procedure Room with Bed. 15:00:58 Procedure ended. 15:00:58 Full Disclosure recording stopped 15:01:02 End room use (Document Last) Device Usage Item Name Manufacture Quantity Catalog Hospital Part Current Minimal Lot# / Number Charge Number Stock Stock Serial# Code ACIST Acist 1 46068 [id number] 101829 245666 20 Syringe Medical (77041) Systems Inc ACIST Hand Acist 1 60662 310978 737032 988573 5 Control Medical (34518) Systems Inc ACIST Acist 1 12933 214323 545621 195288 5 Manifold Medical (27290) Systems Inc Tegaderm 4 3M 1 1626W 566265 396010 571830 5 x 4 (1626W) Bag Microtek 1 2001S 657986 98590 641506 5 Decanter Medical Inc. () Medline Medline 1 [id number] 180103 29904 135913 5 Cath Pack ([id number]) DIAGNOSTIC St Sukhjinder 1 411004 964699 158671 345936 30 WIRE .035 260cm J wire (252120) MBrace Advanced 1 140-0250-00 936878 95014 001897 5 Wrist Vascular Support Dynamics ([id number]) SHEATH 6FR Terumo 1 [id number] 819261 128055 629854 5 Slender (80-1060) SHEATH 5FR Terumo 1 KJB310 501871 782547 165971 5 Coleman (GKS388) DIAGNOSTIC Cardinal 1 EQ7624 414905 52888 599475 30 Multipack Health 5Fr catheter set (TF1500) MULTIPACK Cardinal 1 854744 5 JL 4.0 5Fr Health catheter MULTIPACK Cardinal 1 235399 5 3DRC 5Fr Health catheter MULTIPACK Cardinal 1 036223 5 Pigtail 5 Health Fr catheter EXOSEAL 5Fr Cardinal 1 EX500 109120 755090 779181 10 (EX500) Health Signature Audit Castine Stage Time Signature Unsigned Intra-Procedure 10/11/2018 Magi Stephens 3:04:54 PM RT(R) Signatures Monitor : Magi Stephens Signature : RT Date : Time : [facility] [address] [place] [address]
[2018-10-11] MEDS ORDERED: ACEBUTOLOL HCL200 MG PO (12:11)
[2018-10-11] MEDS ORDERED: BAYER CHEWABLE81 MG PO (12:12)
[2018-10-11] MEDS ORDERED: NORVASC5 MG PO (12:12)
[2018-10-11] MEDS ORDERED: ATIVAN0.5 MG PO (12:12)
[2018-10-11 12:19] VITALS: BP 160/58; Ht 157.5 cm; Wt 72.7 kg
[2018-10-11 12:31] LABS: BASOPHILS 0.1 % (0-2); EOSINOPHILS 0 % (0-7); HEMATOCRIT 46.4 % (36.0-48.0); HEMOGLOBIN 16.5 g/dL (12-16); IMMATURE GRANULOCYTES 0.3 % (0-5); LYMPHOCYTES 7.9 % (15-50); MCH 31.7 pg (26.0-34.0); MCHC 35.6 g/dL (31.0-37.0); MCV 89.2 fL (80.0-100.0); MEAN PLATELET VOLUME 9.8 fL (7.4-10.4); MONOCYTES 2.4 % (2-11); NEUTROPHILS 89.3 % (40-80); PLATELET COUNT 285 10x3/uL (130-400); RDW 12.6 % (11.5-14.5); WBC 12.3 10x3/uL (4.8-10.8)
[2018-10-11 12:37] LABS: CALC OSMOLALITY 286 mosm/kg (275-300); CALCIUM 9.4 mg/dL (8.5-10.1); CARBON DIOXIDE 26.8 mmol/L (21.0-32.0); CHLORIDE - SERUM 102 mmol/L (98-107); CREATININE - SERUM 0.8 mg/dL (0.6-1.3); GLUCOSE 193 mg/dL (74-106); SODIUM 140 mmol/L (136-145); UREA NITROGEN 21 mg/dL (7-18); eGFR NON AFRICAN AMERICAN 76 mL/min (90-120)
== END 2018-10-11 17:05 | disposition home or self-care (01) ==
LOC: D.CATH 11:51
PROVIDERS: Internal Medicine Cardiovascular Disease
DX: I25.119 Atherosclerotic heart disease of native coronary artery with unspecified angina pectoris (principal); T82.855A Stenosis of coronary artery stent, initial encounter; Z01.812 Encounter for preprocedural laboratory examination

== ENCOUNTER → 2018-11-04 11:28 | Outpatient (CLI) | payer MEDICARE ==
[2018-10-11 12:19] VITALS: BMI 29.3
[~2018-11-04 11:28] MED LIST changes: +ATIVAN0.5 MG PO; +BAYER CHEWABLE81 MG PO; +NORVASC5 MG PO
== END | disposition home or self-care (01) ==
LOC: D.RAD 11:28
DX: I73.9 Peripheral vascular disease, unspecified (principal); I25.10 Atherosclerotic heart disease of native coronary artery without angina pectoris; I65.23 Occlusion and stenosis of bilateral carotid arteries; R60.0 Localized edema

== ENCOUNTER → 2018-11-10 15:50 | Outpatient (CLI) | payer MEDICARE ==
[2018-10-11 12:19] VITALS: BMI 29.3
[2018-11-12 07:23] LABS: HEPATITIS C ANTIBODY <0.1 (0.0-0.9)
== END | disposition home or self-care (01) ==
LOC: D.CT 15:50
PROVIDERS: Thoracic Surgery (Cardiothoracic Vascular Surgery)
DX: I25.10 Atherosclerotic heart disease of native coronary artery without angina pectoris (principal)

== ENCOUNTER 2018-11-14 07:30 | Inpatient (IN) | payer MEDICARE ==
--- NOTE | 2018-11-09 13:24 | HP ---
PATIENT: STEVE HANCOCK MEDICAL RECORD: [id number] ACCOUNT: [id number] LOCATION:[facility] : 54 ADMISSION DATE: 11/14/18 PCP: HISTORY AND PHYSICAL EXAMINATION STEVE Vasquez (68yo, F) ID# [id number]. Date/Time10/28/2018 10:07BAEMH01 1952ervice Dept.NPP_[facility] ClinicProviderEDSKIP CHAVEZ MDInsuranceMed Primary: [facility] (MEDICARE REPLACEMENT/ADVANTAGE - PPO) Insurance # : [id number] Policy/Group # : [id number] Referring Provider Name : DAMIÁN JAY Employer Name : PHARMACY TECHNICIAN Med Secondary: [place] (MEDICARE) Insurance # : [id number] Employer Name : PHARMACY TECHNICIAN Prescription: ORX - Member is eligible. Chief Complaint requested appt with Hussain for CAD Patient's Care Team Referring Provider (): DAMIÁN JAY: [address] [place] [phone], , Patient's Pharmacies [facility] [address] (ERX): [address] [place] [phone], , Vitals BP:128/68 sitting L arm 10/28/2018 10:28 am 136/80 sitting R arm 10/28/2018 10:29 amBP Cuff Size:adult 10/28/2018 10:28 am adult 10/28/2018 10:29 amHR:60,reg 10/28/2018 10:30 amHt:5 ft 2.5 in 10/28/2018 10:30 amWt:142 lbs 10/28/2018 10:30 amNotes:has been feeling very tired for the past six months and has had some episodes of chest pain with exertion (like raking leaves), which subsides with rest 10/28/2018 10:31 amBMI:25.6 10/28/2018 10:30 amAllergies Reviewed Allergies ACCUPRIL: - body turned red with violent shakingALDOMET: Rash, Respiratory distressAMOXIL: Rash, Respiratory distressAPRESOLINE: - body turned bright red, violent shaking, hospitalization requiredBARIUM IODIDE: Vomiting - required hospitalizationBUSPAR: - resp distress, rashDIBENZYLINE: - loss of consciousnessERYTHROMYCIN BASE: - respiratory distress, rashINVOKANA: - uncontrolled rapid eye movementIODINE: - rash, welts, respiratory distressMETFORMIN: - rash and urticariaMINIPRESS: - respiratory distress, rashNORMODYNE: - body bright red, violent shaking, required hospitalizationPENICILLINS: - respiratory distress, rashPROCARDIA: - respiratory distress, rashTENEX: - resp distress, rashTENORMIN: - respiratory distress, rashMedications Reviewed Medications acebutolol 200 mg capsule Take 1 capsule(s) every day by oral route.10/21/18 [facility]amLODIPine 10 mg tablet Take 0.5 tablet(s) every day by oral route.10/21/18 [facility] 81 mg tablet,delayed release Take 1 tablet(s) every day by oral route.10/21/18 [facility]LORazepam 0.5 mg tablet Take 1 tablet(s) every day by oral route at bedtime.10/21/18 [facility]pironolactone 25 mg tablet Take 1 tablet(s) twice a day by oral route.10/21/18 [facility] Wilson[facility]blems Reviewed Problems HISTORY AND PHYSICAL [id number] STEVE HANCOCK Coronary arteriosclerosis - Onset: 10/21/2018 Family History Reviewed Family History Father- Heart diseaseMother- Heart diseasecancerSocial History Reviewed Social History Cardiology Family history of heart disease?: Y Smoking Status: Former smoker High Cholesterol: Y High blood pressure: Y Overweight: Y Obese: N Diabetes: Y Surgical History Reviewed Surgical History Hysterectomy/bladder repair Cholecystectomy CATH/PTCA/STENT 03/17/17 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) Past Medical History Reviewed Past Medical History Angioplasty (balloon): Y Arm Pain: Y Blurred Vision: Y Cancer: Y Chest Pain: Y Coronary Artery Disease: Y Diabetes: Y Eye Problems: Y Heart Disease: Y Hyperlipidemia: Y Hypertension: Y Irregular heart beat: Y Shortness of Breath: Y Swelling of Ankles, Feet or Hands: Y Notes: FATIGUE, HEART ATTACK, HEART FLUTTERS, HEART PALPITATIONS, HEART CATH, HEART STENTS, NUMBNESS OF FEET/LEGS, RELATIVE WITH STROKE/CVA, SIBLING/CHILD W HEART DISEASE, SORE MUSCLES/JOINTS, TACHYCARDIA, UPPER BACK PAIN, VARICOSE VEINS, WEAKNESS Documents for Discussion N/A Screening None recorded. HPI Fatigue Reported by patient. Quality: continuous Severity: normal sleep patterns; change in exercise habits Duration: constant; symptoms lasting over 2 weeks Timing: gradual HISTORY AND PHYSICAL [id number] STEVE HANCOCK Context: symptoms do not improve on weekends/vacations Modifying Factors: no new stressors in life Associated Symptoms: no drug/alcohol withdrawal; no depression; no anxiety; no sleep disturbances; no snoring; periods of not breathing (apnea) have not been observed; no recent change in weight coronary artery disease ROS Patient reports chest pain on exertion but reports no arm pain on exertion, no short ness of breath when walking, no shortness of breath when lying down, no palpitations, and no known heart murmur. She reports no fever, no night sweats, no significant weight gain, no significant weight loss, and no exercise intolerance. She reports no dry eyes, no irritation, and no vision change. She reports no difficulty hearing and no ear pain. She reports no frequent nosebleeds and no nose/sinus problems. She reports no sore throat, no bleeding gums, no snoring, no dry mouth, no mouth ulcers, no oral a b normalities, and no teeth problems. She reports no jugular vein distension and no swollen glands. She reports no cough, no wheezing, no shortness of breath, and no coughing up blood. She reports no abdominal pain, no vomiting, normal appetite, no diarrhea , not vomiting blood, no nausea, and no constipation. She reports no incontinence, no difficulty urinating, no hematuria, and no increased frequency. She reports no muscle aches, no muscle weakness, no arthralgias/joint pain, no back pain, and no swelling i n the extremities. She reports no abnormal mole, no jaundice, and no rashes. She reports no loss of consciousness, no weakness, no numbness, no seizures, no dizziness, and no headaches. She reports no depression, no sleep disturbances, feeling safe in rel ationship, and no alcohol abuse. She reports no fatigue. She reports no swollen glands and no bruising. She reports no runny nose, no sinus pressure, no itching, no hives, and no frequent sneezing. ROS as noted in the HPI Physical Exam Patient is a 68-year-old female. Constitutional: General Appearance well nourished and developed and healthy-appearing. Level of Distress NAD. Ambulation ambulating normally. Cardiovascular: Apical Impulse not displaced or no thrill. Heart Auscultation normal s1 and s2; no murmurs, rubs, or gallops; and RRR. Arterial Pulses no abdominal aorta bruits, femoral bruits, or popliteal bruits and 2+ bilateral, carotid 2+ bilateral, femoral 2+ bilateral, popliteal 2+ bilateral, and dorsalis p roly 2+ bilateral. Edema no edema or varicosities. Lungs: Repiratory Effort no dyspnea. Percussion no hyperresonance or dullness or flatness. Auscultation no wheezing, rhonchi, or rales / crackles and breathing sounds normal, good air movement, and CTA except as noted. Abdomen: Bowl Sounds normal. Inspection and Palpation no tenderness, guarding, masses, or rebound tenderness and soft and non-distended. Liver non-tender and no hepatomegaly. Spleen non-tender and no splenomegaly. Hernia none palpable. Musculoskeletal System: Gait And Stance normal gait and stance. Digits and Nails normal nails and no cyanosis. Neurologic: Cranial Nerves grossly intact. Reflexes DTRs 2+ bilaterally throughout. Sensation grossly intact. Lymph Nodes: Lymph Nodes no cervical LAD, supraclavicular LAD, axillary LAD, or HISTORY AND PHYSICAL [id number] STEVE HANCOCK inguinal LAD. Eyes: Lids and Conjunctivae no discharge or pallor and non-injected. Pupils PERRLA. Cornea grossly intact. EOM EOMI. Lens clear. Sclera non-icteric. Neck: Neck no masses, enlarged lymph nodes, or carotid bruits and supple and trachea midline. Thyroid no enlargement or nodules and non-tender. Skin: Inspection and Palpation no rash, lesions, ulcers, jaundice, or abnormal nevi; lower extremity varicosity. Assessment / Plan 1. Coronary arteriosclerosis I25.10: Atherosclerotic heart disease of chitina coronary artery without angina pectoris Return to Office None recorded. Encounter Sign-Off Encounter signed-off by Kemar Chavez MD, 10/28/2018. Encounter performed and documented by Kemar Chavez MD Encounter reviewed & signed by Kemar Chavez MD on 10/28/2018 at 11:08am SOLO NEGRO MD at 1324 CC: [id number] DICTATION DATE: 10/28/18 1000 CURTAIN FITTER: ZENY 11/08/[address] [facility] [address] [id number]
[2018-11-11 11:47] LABS: BASOPHILS 0.1 % (0-2); EOSINOPHILS 0.4 % (0-7); HEMATOCRIT 43.8 % (36.0-48.0); HEMOGLOBIN 15.6 g/dL (12-16); IMMATURE GRANULOCYTES 0.3 % (0-5); LYMPHOCYTES 24.9 % (15-50); MCH 31.8 pg (26.0-34.0); MCHC 35.6 g/dL (31.0-37.0); MCV 89.2 fL (80.0-100.0); MEAN PLATELET VOLUME 9.8 fL (7.4-10.4); MONOCYTES 9.3 % (2-11); PLATELET COUNT 322 10x3/uL (130-400); RBC 4.91 10x6/uL (4.00-5.40); WBC 14.1 10x3/uL (4.8-10.8)
[2018-11-11 11:57] LABS: APTT 27.2 SECONDS (22.8-39.4); INR 1.05 (0.85-1.17); PROTIME 13.2 SECONDS (11.6-15.0)
[2018-11-11 12:04] LABS: APPEARANCE CLEAR (CLEAR); BILIRUBIN NEGATIVE (NEGATIVE); COLOR STRAW (YELLOW); GLUCOSE NEGATIVE (NEGATIVE); KETONE NEGATIVE (NEGATIVE); NITRITE NEGATIVE (NEGATIVE); PROTEIN NEGATIVE (NEGATIVE); SPECIFIC GRAVITY 1.015 (1.005-1.020); UROBILINOGEN NORMAL (NORMAL)
[2018-11-11 12:09] LABS: ALBUMIN 2.6 g/dL (3.4-5.0); ANION GAP 13.1 mmol/L (8-16); BILIRUBIN - TOTAL 0.49 mg/dL (0.2-1.3); CALCIUM 9.2 mg/dL (8.5-10.1); CARBON DIOXIDE 28.3 mmol/L (21.0-32.0); CREATININE - SERUM 0.9 mg/dL (0.6-1.3); PHOSPHOROUS 3.2 mg/dL (2.5-4.9); POTASSIUM - SERUM 3.4 mmol/L (3.5-5.1); PROTEIN - SERUM 7.2 g/dL (6.4-8.2); T4 THYROXIN - FREE 1.15 ng/dL (0.76-1.46); THYROID STIMULATING HORMONE 0.83 uIU/mL (0.36-3.74); URIC ACID 3.1 mg/dL (2.6-7.2)
[~2018-11-14] VITALS: Ht 157.5 cm; Wt 70.4 kg
[2018-11-15] VITALS (47 sets, daily range): BP systolic 93–134; BP diastolic 43–60; BMI 27.8
[2018-11-15] MEDS ORDERED: VITAMIN D31000 UNI2 PO (05:43)
--- NOTE | 2018-11-15 12:52 | NUR ---
1143 PT ARRIVED TO ROOM FROM OR SEDATED, ETT IN PLACE AND PLACED ON VENT BY RT, R IJ CVL DRESSING CDI WITH PLASMALYTE 100ML/HR AND AMIODARONE 1MG/MIN OR 10ML/HR, VERIFIED WITH SRUTHI TO RUN AT THIS RATE FOR 6 HOURS THEN DROP TI 0.5MG/MIN, MIDSTERNAL DRESSING CDI WITH SUBSTERNAL CT (2 SITES Y'D TOGETHER) TO SUCTION NO AIR LEAK, BLOODY DRAINAGE, MARCIN DRAIN COMPRESSED WITH BLOODY DRAINAGE, TPM WIRE COILED TO CHEST, CRITICORE ALANIS DRAINING YELLOW URINE, RLE HARVEST SITES CDI WITH COBAN FROM ANKLE TO GROIN, LLE SCD AND JOVAN IN PLACE, PULSES PALPABLE, FAMILY UPDATED BY DR NEGRO, AND DAUGHTER IN LAW IN ROOM, NO QUESTIONS, PT VS WITHIN PARAMETERS,1:1 MONITORING AT THIS TIME
--- NOTE | 2018-11-15 15:15 | NUR ---
ABGS TREATED PER ORDERS, DR CHAVEZ IN UNIT AND AWARE
--- NOTE | 2018-11-15 15:50 | NUR ---
PT EXTUBATED AND RESTRAINTS REMOVED 1544
--- NOTE | 2018-11-15 16:00 | NUR ---
RECIEVED REPORT ON PT AT THIS TIME. PT LYING IN BED RESTING WITH EYES CLOSED. RESPIRATIONS STEADY AND UNLABORED. AWAKENS EASILY WHEN SPOKEN TO. DRESSINGS CDI. NO ACUTE DISTRESS NOTED. WILL CONTINUE PLAN OF CARE.
--- NOTE | 2018-11-15 17:21 | NUR ---
SIPS OF WATER AND ICE CHIPS GIVEN. PT TOLERATES WELL. VSS. NO ACUTE DISTRESS NOTED. WILL CONTINUE PLAN OF CARE.
--- NOTE | 2018-11-15 19:00 | NUR ---
PT AOX4, PUPILS 3MM EQUAL AND REACITVE. TONGUE MIDLINE, MINE TECHNICIAN EQUAL. GENERALIZED WEAKNESS PRESENT. SHALLOW RESPIRATIONS, SPO2 97, 4L O2 VIA NC. LUNG SOUNDS CLEAR/DIMINISHED. S1S2 HEARD, PERIPHERAL PULSES PRESENT. BOWEL SOUNDS HYPOACTIVE IN ALL QUADRANTS. ALANIS CATH INTACT, TORITO CARE PROVIDED AT THIS TIME. RT LEG WITH COBAN FROM GROIN TO ANKLE, NO S/S OF BLEEDING. MIDLINE INCISION WITH DRSG CDI. SUBSTERNAL CT XT INTACT WITH BLOODY DRAINAGE, MARCIN X1 INTACT AND COMPRESSED, DRSGS CDI. PT REPOSITIONED FOR COMFORT. WEAK COUGH, COMPLETES I/S REACHING 500 X 10. VSS. DENIES NEEDS AT THIS TIME. CALL LIGHT WITHIN PT REACH, ROOM VISIBLE FROM NURSES STATION. CPOC.
--- NOTE | 2018-11-15 19:21 | NUR ---
ORAL RINSE WITH PERIDEX PROVIDED
--- NOTE | 2018-11-15 20:00 | NUR ---
FAMILY AT BEDSIDE, UPDATE PROVIDED AND QUESTIONS ANSWERED. VSS, FRESH ICE CHIPS TO BEDSIDE PER REQUEST, PT VOICES NO FURTHER NEEDS AT THIS TIME. ROOM CALL LIGHT WITHIN PT REACH, ROOM VISIBLE FROM NURSES STATION. CPOC.
--- NOTE | 2018-11-15 20:40 | NUR ---
HS MEDS GIVEN, TOLERATED. PT REPOSITONED WITH PROMINENCES BRIDGED. ORAL CARE PROVIDED. VSS, C/O PAIN 5/10, PRN PAIN MEDICATION GIVEN. COMPLETED I/S REACHING 500 X10. CALL LIGHT WITHIN PT REACH, ROOM VISIBLE FROM NURSES STATION. CPOC.
--- NOTE | 2018-11-15 23:00 | NUR ---
REASSESSMENT COMPLETE, NO NEW CHANGES AT THIS TIME. PT RESTING QUIETLY, AROUSES EASILY TO VOICE. REPOSITIONED WITH PROMINENCES BRIDGED. WEAK COUGH, I/S COMPLETED REACHING 500-750 X10. VSS, DENIED NEEDS. CALL LIGHT WITHIN PT REACH, ROOM VISIBLE FROM NURSES STATION. CPOC.
[2018-11-16] VITALS (54 sets, daily range): BP systolic 94–141; BP diastolic 38–82; Ht 157.5 cm; Wt 70.4 kg
--- NOTE | 2018-11-16 01:00 | NUR ---
PT RESTING QUIETLY WITH VSS, NO S/S OF ACUTE DISTRESS. REPOSITIONED FOR COMFORT. I/S COMPLETED REACHING 500-750 X10. CALL LIGHT WITHIN PT REACH. CPOC.
--- NOTE | 2018-11-16 02:00 | NUR ---
DANGLED PT AT BEDSIDE, TOLERATES WELL. STRONG COUGH, RIVERA SPUTUM. VSS, PT POSITIONED BACK IN BED WITH PROMINENCES BRIDGED. FRESH ICE CHIPS TO BEDSIDE PER REQUEST. DENIES FURTHER NEEDS. CALL LIGHT WITHIN PT REACH. CPOC.
--- NOTE | 2018-11-16 03:00 | NUR ---
REASSESSMENT COMPLETE, NO NEW CHANGES AT THIS TIME. ORAL CARE PROVIDED WITH MINIMAL ASSISTANCE. PT REPOSITIONED FOR COMFORT WITH PROMINENCES BRIDGED. COUGH/DB WITH GOOD EFFORT, I/S COMPLETED REACHING 750 X10. DENIES NEEDS. CALL LIGHT WITHIN PT REACH. CPOC.
--- NOTE | 2018-11-16 05:00 | NUR ---
RLE DRSG CHANGED PER ORDER. PT UP TO CHAIR, TOLERATED WELL. VSS. COMPLETE LINEN CHANGE PROVIDED. COUGH/DB WITH GOOD EFFORT. I/S COMPLETED REACHING 500 X10. CPOC.
[2018-11-16 06:05] LABS: WBC 26.9 10x3/uL (4.8-10.8)
[2018-11-16 06:06] LABS: HEMATOCRIT 34.5 % (36.0-48.0); MCHC 34.8 g/dL (31.0-37.0); MCV 89.1 fL (80.0-100.0); MEAN PLATELET VOLUME 9.7 fL (7.4-10.4); RBC 3.87 10x6/uL (4.00-5.40); RDW 13.2 % (11.5-14.5)
[2018-11-16 06:19] LABS: ALBUMIN 2.8 g/dL (3.4-5.0); ALKALINE PHOSPHATASE 54 U/L (46-116); ALT (SGPT) 64 U/L (10-68); BILIRUBIN - TOTAL 1.05 mg/dL (0.2-1.3); CALC OSMOLALITY 286 mosm/kg (275-300); CALCIUM 7.9 mg/dL (8.5-10.1); CARBON DIOXIDE 25.4 mmol/L (21.0-32.0); CHLORIDE - SERUM 106 mmol/L (98-107); CREATININE - SERUM 0.8 mg/dL (0.6-1.3); PROTEIN - SERUM 5.2 g/dL (6.4-8.2); SODIUM 140 mmol/L (136-145); UREA NITROGEN 21 mg/dL (7-18); eGFR NON AFRICAN AMERICAN 76 mL/min (90-120)
[2018-11-16 06:20] LABS: GLUCOSE 196 mg/dL (74-106)
--- NOTE | 2018-11-16 09:25 | NUR ---
0700 PT RECIEVED UP IN CHAIR ALERT AND ORIENTED VSS O2 2L NC R IJ CVL DRESSING CDI WITH PLASMALYTE AMIODARONE INSULIN AND NITRO INFUSING, R RADIAL ART LINE ZEROED WTIH GOOD WAVEFORM WRIST PROTECTOR IN PLACE, MIDSTERNAL AND SUBSTERNAL DRESSING CDI WITH SUBSTERNAL CT (2Y'D TOGETHER TO ONE DRAINAGE CHAMBER) AND MARCIN DRAIN (COMPRESSED) WITH BLOODY DRAINAGE, TPM WIRE COILED TO CHEST, ALANIS DRAINING YELLOW URINE, RLE HARVEST SITES DRESSINGS CDI 0800 AFTER COMPLAINTS OF CONTINUED PAIN AFTER PERCOCET [address] DEE NURSE BREN AND OKAYED TO GIVE ANOTHER PERCOCET 5 TO EQUAL 10MG PERCOCET, AM MEDS GIVEN WITHOUT DIFFICULTY 0900 REPOSITIONED IN CHAIR, STATES PAIN COMES AND GOES AND IS SHARP AND INCISIONAL, ENCOURAGED TO CONTINUE IS USE, COMPLAINTS OF NAUSEA DECREASED AFTER PRN ZOFRAN, WILL CONTINUE TO MONITOR
--- NOTE | 2018-11-16 10:55 | OP ---
PATIENT NAME: STEVE HANCOCK MEDICAL RECORD: [id number] :54 LOCATION:[facility] ADMISSION DATE:11/15/18 SURGEON: EFE NEGRO MD DATE OF OPERATION: 11/15/2018 SURGEON: Efe Negro MD PATTERNMAKER BENCH: Aileen Nixon MD and Guerrero Naqvi. PROCEDURE PERFORMED: Coronary artery bypass graft times 2 (left internal mammary to LAD, reverse saphenous vein graft from aorta to obtuse marginal). PREOPERATIVE DIAGNOSES: Coronary artery disease. POSTOPERATIVE DIAGNOSIS: Coronary artery disease. ANESTHESIA: General endotracheal anesthesia. ESTIMATED BLOOD LOSS: Total cardiopulmonary bypass. SPECIMENS: Internal mammary lymph node for permanent specimen. COMPLICATIONS: None. CONDITION: Stable. DISPOSITION: CV ICU. OPERATIVE FINDINGS: 1. Good quality left internal mammary artery. Intramyocardial 1.5 mm left internal mammary artery to LAD. 2. Obtuse marginal 1.5 mm. 3. Small diagonal 1 mm with severe disease, not grafted. OPERATIVE INDICATION: Coronary artery disease. DESCRIPTION OF PROCEDURE: The patient was brought to the operating suite. General anesthesia was obtained, the patient was prepped and draped. Greater saphenous vein harvested with 3 bridging incisions, right lower extremity. Side branches were divided with clips. Vessel ligated proximally, distally removed. Side branches were tied or oversewn. This portion of the surgery was performed by the lead assistant manager Dr. Nixon. The utilization of an lead assistant manager saved approximately 30 minutes of general anesthetic time. Median sternotomy incision was made. Subcutaneous tissue divided with electrocautery. The sternum was divided with a saw. Left hemisternum was elevated. Left pleural cavity was entered. Left internal mammary vein was taken as a pedicle graft. Sternal retractor was placed. Pericardium was opened. Heparin was given. Aorta was cannulated. Dual stage venous cannula was inserted. The patient was placed on cardiopulmonary bypass. Sites for distal anastomoses were selected. Crossclamp was placed. Cardioplegia given through the aortic root and this was repeated at 15 to 20 minute intervals during the crossclamp time. OPERATIVE REPORT [id number] STEVE HANCOCK Distal anastomoses was performed in standard technique, single crossclamp proximal anastomosis, flow restored. Proximal and distal anastomotic sites inspected for bleeding. The patient fully rewarmed, weaned from cardiopulmonary bypass and was stable. The patient was decannulated. Both cannulation sites were oversewn with pledgeted Prolene suture. Thorough irrigation was undertaken. Protamine was given. Hemostasis was ensured. A drain was placed in the mediastinum and left pleural cavity. Single ventricular pacing wires were placed. The Pericardial fat was loosely reapproximated. Left chest evacuated and irrigated. The internal mammary harvest site was hemostatic. Sternum was closed with wires. Fascia was closed. Subcutaneous tissue was closed. Skin was closed. Dermabond was placed. The needle and sponge counts were reported as correct and the patient was taken to ICU in stable condition. TRANSINT:[id number] Voice Confirmation ID: [id number] DOCUMENT ID: [id number] EFE NEGRO MD at 1055 CC: DAMIÁN JAY M.D. [id number] DICTATION DATE: 11/15/18 175 MANAGER COMPLIANCE: 11/15/18 1579 ADM IN [id number] [place] [address]
--- NOTE | 2018-11-16 12:50 | NUR ---
1000 ART LINE AND ALANIS REMOVED PER PROTOCOL TIPS INTACT AND NO SIGNS OF BLEEDING, CVL DRESSING CHANGED 1245ATE SMALL AMOUNT OF CLEAR LIQUID LUNCH
--- NOTE | 2018-11-16 16:39 | TEE ---
PATIENT:STEVE HANCOCK MEDICAL RECORD: [id number] LOCATION:[place] [address] AGE OF PATIENT: 68 ADMISSION DATE: 11/15/18 SEX: F REFERRING PHYSICIAN: INTERPRETING PHYSICIAN: NESTOR HUFF MD TRANSESOPHAGEAL ECHOCARDIOGRAM Date: 11/15/18 JULIO CHARGE Y INDICATIONS: CABG PREMEDICATIONS: PATIENT'S RESPONSE PROCEDURE DOPPLER MEASUREMENTS: LVIT LA PA RA LVOT RVOT Asc. Ao AV Gradient Peak AV Mean AV Area MV Gradient Peak MV Mean MV Area INTERPRETATION: Doppler: 2-D: COLOR FLOW DOPPLER NORMAL SALINE STUDY: MISCELLANOUS: DIAGNOSIS: PLAN: Hydrologist:2 Dr. Llanos Executive Assistant To President: Radha GARCIA COMMENTS: SRUTHI DATE OF SERVICE: 11/15/2018 PROCEDURE: Transesophageal echo evaluation of valvular structures during bypass surgery. FINDINGS: 1. Left ventricular chamber size is within normal limits. Left ventricular systolic function is normal. Overall ejection fraction is estimated at 50%. 2. Left atrium, right atrium, and right ventricle chamber sizes are within TRANSESOPHAGEAL ECHOCARDIOGRAM REPORT [id number] STEVE HANCOCK normal limits. 3. Valvular structures have normal structure and motion. 4. Doppler interrogation reveals no significant valvular insufficiency or stenosis. 5. No evidence of pericardial effusion or left ventricular thrombus. TRANSINT:[id number] Voice Confirmation ID: [id number] DOCUMENT ID: [id number] at 1639 CC: [id number] DICTATION DATE: 11/15/18 1225 ORGAN PIPE MAKER METAL: 11/16/18 0046 ADM IN [id number] [place] [address]
--- NOTE | 2018-11-16 17:35 | NUR ---
1500 SEEN BY PT [address] NEGRO BEFORE COREG ADMINISTERATION, PT STATED THAT SHE HAS HAD COREG BEFORE AND THAT IT"MADE MY BLOOD PRESSURE GO WAY HIGH", AND DR NEGRO AWARE OF OTHER ALLERGIES, ORDERS TO GIVE MED, PT ASSISTED TO BED TO REMOVE CHEST TUBES AND PT STATED HER LEGS WERE TREMBLING AND HAS HAD THIS A MED REACTION BEFORE BUT DENIES ANY OTHER REACTION, NOTIFIED LUIZ NURSE ANDREW, PT THEN STATED TREMBLING HAD STOPPED AND SHE THOUGHT IT MAY BE NERVES [address]
--- NOTE | 2018-11-16 19:31 | NUR ---
REPORT RECEIVED, SHIFT ASSESSMENT COMPLETED PER FLOW SHEET. AAOX4. PPP. TELEMETRY MONITORING HR 78, SINUS RHYTHM. VSS. MOVES ALL EXTREMITIES. FOLLOWING COMMANDS. COUGH/DEEP BREATHING AND USE OF IS ENCOURAGED. PULLING 1000 X10 ON IS. ALLERGIES REVIEWED. DENIES NEEDS. CALL LIGHT WITHIN REACH. SEE FLOW SHEET FOR COMPLETE ASSESSMENT. WILL CONTINUE TO MONITOR.
--- NOTE | 2018-11-16 19:37 | NUR ---
ORAL RINSE WITH PERIDEX PROVIDED
--- NOTE | 2018-11-16 21:17 | NUR ---
CALL LIGHT ANSWERED. AT BEDSIDE. ASSISSTED PATIENT OOB TO BATHROOM. VOID X1. ASSISSTED BACK TO BED. WATER WITH ICE PROVIDED. DENIES OTHER NEEDS. CALL LIGHT WITHIN REACH.
--- NOTE | 2018-11-16 23:18 | NUR ---
REASSESSMENT COMPLETED PER FLOW SHEET, SEE FOR DETAILS. NO ACUTE CHANGES NOTED. VSS. DENIES NEEDS. WILL CONTINUE TO MONITOR.
[2018-11-17] VITALS (25 sets, daily range): BP systolic 97–133; BP diastolic 40–75
--- NOTE | 2018-11-17 01:00 | NUR ---
RESTING, NO ACUTE DISTRESS NOTED. WILL CONTINUE TO MONITOR.
--- NOTE | 2018-11-17 03:14 | NUR ---
REASSESSMENT COMPLETED PER FLOW SHEET, SEE FOR DETAILS. ASSISSTED OOB TO BATHROOM. VOIDED X1. ASSISSTED BACK IN BED. DENIES OTHER NEEDS. VSS. WILL CONTINUE TO MONITOR. CALL LIGHT WITHIN REACH.
--- NOTE | 2018-11-17 04:37 | NUR ---
AT BEDSIDE. UPDATE GIVEN. QUESTIONS ANSWERED. PATIENT DENIES NEEDS. CALL LIGHT WITHIN REACH.
--- NOTE | 2018-11-17 05:00 | NUR ---
COMPLETE BED BATH GIVEN WITH SOAP AND WATER. COMPLETE BED LINEN CHANGE PROVIDED. [facility]OSP[facility] GOWN PROVIDED. ASSISSTED OOB TO CHAIR. TOLERATED ALL WELL. CALL LIGHT WITHIN REACH. WILL CONTINUE TO MONITOR.
[2018-11-17 06:31] LABS: HEMOGLOBIN 11.6 g/dL (12-16); MCH 30.9 pg (26.0-34.0); MCHC 34.1 g/dL (31.0-37.0); MCV 90.7 fL (80.0-100.0); MEAN PLATELET VOLUME 9.8 fL (7.4-10.4); RBC 3.75 10x6/uL (4.00-5.40); RDW 13.6 % (11.5-14.5)
[2018-11-17 06:33] LABS: WBC 18.7 10x3/uL (4.8-10.8)
--- NOTE | 2018-11-17 07:30 | NUR ---
SHIFT REPORT RECEIVED. PT RESTING COMFORTABLY IN CHAIR. A&OX4. REPORT PAIN 6/10 AT INCISIONAL SITE. DOES NOT WANT PAIN MEDICATION AT THIS TIME. SHE STATES THAT IT HURTS WHEN SHE BREATHES BUT SHE CAN TOLERATED IT. HAS RIJ CVL SALINE LOCK. MIDSTERNAL DRESSING CDI. L-MARCIN DRAIN IN PLACE. TPM WIRES IN PLACE. DRESSING CDI. R LEG HARVEST SITES DRESSING CDI. SHIFT ASSESSMENT COMPLETED. WILL CONTINUE TO MONITOR.
[2018-11-17 07:39] LABS: ALBUMIN 2.7 g/dL (3.4-5.0); ALKALINE PHOSPHATASE 62 U/L (46-116); ALT (SGPT) 66 U/L (10-68); BILIRUBIN - TOTAL 0.89 mg/dL (0.2-1.3); CALC OSMOLALITY 280 mosm/kg (275-300); CALCIUM 8.3 mg/dL (8.5-10.1); CARBON DIOXIDE 29.4 mmol/L (21.0-32.0); CHLORIDE - SERUM 103 mmol/L (98-107); CREATININE - SERUM 0.6 mg/dL (0.6-1.3); PROTEIN - SERUM 5.4 g/dL (6.4-8.2); SODIUM 139 mmol/L (136-145); UREA NITROGEN 16 mg/dL (7-18); eGFR NON AFRICAN AMERICAN > 90 mL/min (90-120)
[2018-11-17 07:42] LABS: GLUCOSE 131 mg/dL (74-106)
--- NOTE | 2018-11-17 08:15 | NUR ---
SPOUSE AT BEDSIDE. MEAL TRAY PROVIDED. ORAL MEDICATIONS GIVEN. NO FURTHER NEEDS AT THIS TIME.
--- NOTE | 2018-11-17 09:30 | NUR ---
AMBULATED TO BATHROOM WITH NURSE. VOIDED X 1. NO STOOL NOTED. AMBULATED ABOUT 250FT WITH PHYSICAL THERAPY WITH NO COMPLICATIONS. BACK IN CHAIR AT THIS TIME. WILL CONTINUE TO MONITOR.
--- NOTE | 2018-11-17 11:07 | NUR ---
SUBSTERNAL DRESSING CHANGED PER ORDERS. PT RESTING IN CHAIR. REPORT DISCOMFORT ON INCISION SITE. DOES NOT WANT PAIN MEDICATION AT THIS TIME. WILL CONTINUE TO MONITOR.
--- NOTE | 2018-11-17 12:04 | MORECARE ---
CASE MANAGEMENT DISCHARGE SUMMARY PATIENT: STEVE HANCOCK UNIT: [id number] ADM DATE: 11/15/18 AGE: 68 : 52 SEX: F ROOM/BED: D[facility] AUTHOR: ARLETTE,DOC PHYSICIAN: REFERRING PHYSICIAN: SOLO NEGRO MD DATE OF SERVICE: 11/17/18 Discharge Plan Patient Name: STEVE HANCOCK Facility: [facility]:Paige : 1950 Planned Disposition: Home Anticipated Discharge Date: Discharge Date: Expected LOS: Initial Reviewer: [email or web address] Initial Review Date: 11/15/2018 Generated: 11/17/18 1:04 pm Comments DCP- Discharge Planning Updated by [email or web address]: Rebeka Sparrow on 11/17/18 11:[address] Patient Name: STEVE HANCOCK Admission Status: Elective Accout number: [id number] Admission Date: 11-15-2018 : 1950 Admission Diagnosis: Attending: SOLO NEGRO Current LOS: 2 Anticipated DC Date: Planned Disposition: Home Primary Insurance: [facility] [employer] Discharge Planning Comments: CM met with patient at bedside after obtaining verbal consent. Patient states she plans on returning home after discharge with her . Patient states she will have family transport her home via private vehicle. Patient denies any discharge needs at this time. CM will continue to follow and assist as needed for discharge planning / needs. Dedicated Regional Driver: Rebeka Sparrow DCPIA - Discharge Planning Initial Assessment Updated by [email or web address]: Rebeka Sparrow on 11/17/18 12:02 pm * Is the patient Alert and Oriented? Yes * How many steps to enter\exit or inside your home? * PCP LUNA ESCALERA * Pharmacy [facility] * Preadmission Environment Home with Family * ADLs Independent * Equipment Walker * Other Equipment BSC * List name and contact numbers for known caregivers / representatives who currently or will assist patient after discharge: MI HANCOCK - - [phone] * Verbal permission to speak to the caregivers and representatives has been obtained from the patient. N/A * Community resources currently utilized None * Additional services required to return to the preadmission environment? No * Can the patient safely return to the preadmission environment? Yes * Has this patient been hospitalized within the prior 30 days at any hospital? No Patient Name: STEVE HANCOCK Page [id number] at 1204 All edits/amendments must be made on the electronic document DICTATION DATE: 11/17/181202 DOCTOR OSTEOPATHIC: ZENY 11/17/181202 RPT#: [id number] DC DATE: STATUS: ADM IN [facility] [address] [place] [address] END OF REPORT
--- NOTE | 2018-11-17 13:00 | NUR ---
RESTING COMFORTABLY IN CHAIR. ATE SOME JELLO AND DID NOT WANT BROTH. WILL CONTINUE TO MONITOR.
--- NOTE | 2018-11-17 14:47 | NUR ---
RESTING COMFORTABLY IN CHAIR. WALKED WITH PHYSICAL THERAPY AGAIN THIS AFTERNOON. SHE WALKED ABOUT 250FT. PERCOCET 5MG TAB WAS GIVEN FOR PAIN AFTER WALKING. CHICKEN BROTH AND SALTINE CRACKERS PROVIDED PER PT REQUEST.
--- NOTE | 2018-11-17 15:30 | NUR ---
RE-ASSESSMENT COMPLETED AND CHARTED. PT REPORTS SEEING BUGS ON FLOOR. NURSE DID NOT SEE BUGS. SHE STATES THAT PERCOCET SEEMS TOO STRONG FOR HER. SHE PREFERS TO USE TYLENOL FOR PAIN. NO FURHTER COMPLAINTS AT THIS TIME. WILL CONTINUE TO MONITOR.
--- NOTE | 2018-11-17 18:46 | NUR ---
SPOKE WITH PRANAV NEGRO'S NURSE REGARDING PERCOCET AND TYLENOL. PT ALSO MENTIONED IT TO DR. CHAVEZ WHEN HE WAS AT BEDSIDE. PT WANTS TO TAKE TYLENOL FOR PAIN INSTEAD OF PERCOCET. PERCOCET MAKES HER HALLUCINATE.
--- NOTE | 2018-11-17 19:20 | NUR ---
Received patient resting in bed with eyes open, assessment completed per flowsheet. Patient AO x4, calm and cooperative. S1/S2 noted NSR on telemetry, rythmic and regular. Breathing is shallow/unlabored on room air with O2 sat 93%, lung sounds clear bilateral upper and mid with diminished lower. Midline sternal incision dressing CDI, Substernal dressing CDI. TPM wires coiled/secure, Jelani drain x1 with small bloody drainage noted. All pulses palpable with cap refill < 3 sec, skin warm/dry. Denies pain or other needs at this time, see flowsheet for details. All VSS and will continue to monitor.
--- NOTE | 2018-11-17 21:00 | NUR ---
Patient family at bedside for visitation, discussed post-op care/medications with all questions answered to satisfaction. Assisted to bathroom at request, 375ml urine noted. No further needs at this time, will continue to monitor.
--- NOTE | 2018-11-17 23:20 | NUR ---
Reassessment completed per flowsheet, patient resting in bed with eyes closed. S1/S2 noted NSR on telemetry, rythmic and regular. Breathing is shallow/unlabored on room air with O2 sat 92%, lung sounds clear bilateral upper and mid with diminished lower. Midline sternal incision dressing CDI, substernal dressing CDI. Jelani drain x1 with small bloody drainage noted, TPM wires coiled/secure. All pulses palpable with cap refill < sec, skin warm/dry. No further needs at this time, see flowsheet for details. All VSS and will continue to monitor.
[2018-11-18] VITALS (20 sets, daily range): BP systolic 104–128; BP diastolic 38–59
--- NOTE | 2018-11-18 01:00 | NUR ---
Patient sleeping in bed with eyes closed, no s/s of distress at this time. No further needs at this time, all VSS and will continue to monitor.
--- NOTE | 2018-11-18 03:20 | NUR ---
Reassessment completed per flowsheet, patinet sleeping in bed with eyes closed. S1/S2 noted NSR on telemetry, rythmic and regular. Breathing is shallow/unlabored on room air with O2 sat 93%, lung sounds clear bilateral upper and mid with diminished lower. Midline sternal incision dressing CDI, Substernal dressing changed. TPM wires coiled, Jelani drain x1 with scant bloody drainage noted. R leg harvest site dressing changed, well approximated with vasyl intact. Denies pain or other needs at this time, see flowsheet for details. All VSS and will continue to monitor.
--- NOTE | 2018-11-18 05:00 | NUR ---
Family at bedisde for visitation, patient up in chair at bedside. Assisted to bathroom at request, clear yellow urine noted. No further needs at this time, all VSS and will continue to monitor.
[2018-11-18 07:10] LABS: ALBUMIN 2.4 g/dL (3.4-5.0); ALKALINE PHOSPHATASE 62 U/L (46-116); BILIRUBIN - TOTAL 0.98 mg/dL (0.2-1.3); CALC OSMOLALITY 279 mosm/kg (275-300); CALCIUM 7.9 mg/dL (8.5-10.1); CARBON DIOXIDE 29.7 mmol/L (21.0-32.0); CHLORIDE - SERUM 104 mmol/L (98-107); CREATININE - SERUM 0.6 mg/dL (0.6-1.3); GLUCOSE 125 mg/dL (74-106); POTASSIUM - SERUM 3.6 mmol/L (3.5-5.1); PROTEIN - SERUM 5.4 g/dL (6.4-8.2); SODIUM 140 mmol/L (136-145); UREA NITROGEN 12 mg/dL (7-18); eGFR NON AFRICAN AMERICAN > 90 mL/min (90-120)
[2018-11-18 07:16] LABS: HEMOGLOBIN 11.2 g/dL (12-16); MCH 30.8 pg (26.0-34.0); MCHC 33.9 g/dL (31.0-37.0); MCV 90.7 fL (80.0-100.0); MEAN PLATELET VOLUME 10.1 fL (7.4-10.4); RBC 3.64 10x6/uL (4.00-5.40); RDW 13.2 % (11.5-14.5)
[2018-11-18 07:21] LABS: WBC 10.9 10x3/uL (4.8-10.8)
[2018-11-18 07:24] LABS: ALT (SGPT) 44 U/L (10-68)
--- NOTE | 2018-11-18 10:37 | NUR ---
Nutrition Follow Up: Pt reported that her appetite is improving and she is tolerating diet advancement. Pt requested info on heart healthy diet. She said that she follows an ADA diet at home but wanted to add AHA diet guidelines as well. RD provided pt with written info and discussed low Na, low fat, etc with pt. RD encouraged pt to continue increasing po intake as able to promote healing, maintain strength, etc. Diet: ADA/AHA PO Intake: 30% meal avg Wt gain noted No BM since admit I>O Labs reviewed Meds noted including Reglan Rec continue current diet. Will honor food preferences within diet restrictions. RD following.
[2018-11-18 12:52] LABS: HEMATOCRIT 31.6 % (36.0-48.0); HEMOGLOBIN 10.8 g/dL (12-16)
--- NOTE | 2018-11-18 17:24 | NUR ---
0730-RECIEVED AWAKE AND ALERT-SITTING UP IN CHAIR-REQUESTING REGULAR BREAKFEST TRAY-SAME ORDERED 0930-AMBULATED IN HALLWAY WITH PHYSICAL THERAPY-IN HALLWAY-SR ON MONITOR 1045-AMBULATED TO RESTROOM 1145-NOTED COPIOUS SEROUS/ SANG DRAINAGE IN L MARCIN DRAIN-EMPTIED AND RECOMPRESSED FOR SUCTIONX2-THIRD EMPTYING AND COMPRESSION-PT CRIED OUT IN SEVERE PAIN STATED L LATERAL "10"-CAN'T STAND IT -NOTED O2 SAT 95%-PT STATED NOT ABLE TO BREATH-O2 PLACED ON PT -DR NEGRO IN UNIT AND NURSE BREN RAPP RN-BROUGHT TO BEDSIDE-ASSISTED PT WITH DIFFICULTY TO BED-FAST FOOD SERVER PRESENT IN UNIT WITH PORT XRAY-CHEST XRAY UPRIGHT STAT DONE -VIEWED BY DR NEGRO-PT CONTINUES TO DESCRIBE PAIN EXCRUCIATING AND CRYING OUT LOUDLY-MORPHINE 2 MG IVP GIVEN STAT- LATERAL MARCIN DRAIN REMOVED BY Aileen RAPP RN DIRECTED BY DR NEGRO-PT EXPRESSED IMMEDIATE RELIEF OF PAIN -FACIAL SHOWS RELIEF-REMAINS UP RIGHT 1300-RESTING COMFORTABLY 1500-FAMILY PRESENT AND ASSISTED PT TO REST ROOM -AMBULATING WITHOUT DIFFICULTY 1630-SITTING UP IN CHAIR -DINNER TRAY TAKEN 1710-AMBULATING IN HALLWAY AND REMAINS SR ON MONITOR-STATES NO FURTHER L LATERAL PAIN NOTED
--- NOTE | 2018-11-18 19:30 | NUR ---
REPORT RECIEVED, SHIFT ASSESSMENT COMPLETE, PLEASE SEE FLOW SHEETS FOR DETAILS. PATIENT SITTING UP IN CHAIR. DENIES PAIN/NEEDS NOW. RR EVEN AND UNLABORED AND LUNG SOUNDS CLEAR. S1S2 HEARD AND RRR NOTED ON CM, PPP, CAP REFIL <3 SECONDS. JOVAN'S ON, DRESSINGS CDI ON RIGHT LEG. MIDSTERNAL AND SUBSTERNAL DRESSINGS CDI. BS HYPO X4. DEMONSTRATED 1000 ON I.S. TEACHING ON HOW OFTEN SHOULD BE USING GIVEN. HEMODYNAMICALLY STABLE ATT. CALL LIGHT IN REACH. WILL CPOC.
--- NOTE | 2018-11-18 21:30 | NUR ---
TOLERATED PO MEDS WELL. GOT UP TO RESTROOM, AMBULATED WITH NO ASSISTANCE, GAIT STEADY. HAD C/O PAIN IN NECK, GAVE PAIN MEDS PER ORDERS. DENIES ANY OTHER NEEDS. HEMODYNAMICALLY STABLE ATT, BED LOW AND LOCKED, CALL LIGHT IN REACH. WILL CPOC.
--- NOTE | 2018-11-18 23:00 | NUR ---
REASSESSMENT COMPLETE, PLEASE SEE FLOW SHEETS FOR DETAILS. NO ACUTE CHANGES FROM PREVIOUS ASSESSMENT TO NOTE. DENIES PAIN ATT, GOT UP TO BATHROOM, VOIDED. AMBULATED SELF WELL. DENIES ANY NEEDS. BED LOW AND LOCKED, CALL LIGHT IN REACH. HEMODYNAMICALLY STABLE ATT. WILL CPOC.
[2018-11-19] VITALS (24 sets, daily range): BP systolic 98–153; BP diastolic 44–68
--- NOTE | 2018-11-19 01:00 | NUR ---
RESTING, HEMODYNAMICALLY STABE ATT. BED LOW AND LOCKED, CALL LIGHT IN REACH. WILL CPOC.
--- NOTE | 2018-11-19 03:08 | NUR ---
REASSESSMENT COMPLETE, PLEASE SEE FLOW SHEETS FOR DETAILS. NO ACUTE CHANGES FROM PREVIOUS ASSESSMENT TO NOTE. HEMODYNAMICALLY STABLE ATT. BED LOW AND LOCKED, CALL LIGHT IN REACH. WILL CPOC.
--- NOTE | 2018-11-19 05:00 | NUR ---
PATIENT BATHED SELF. FULL LINEN CHANGE PROVIDED. JOVAN'S BACK ON. HEMODYNAMICALLY STABLE DURING AND POST ACTIVITY. DENIES PAIN/NEEDS. UP TO CHAIR. CALL LIGHT IN REACH. VOID X1. WILL CPOC.
[2018-11-19 06:41] LABS: ALBUMIN 2.4 g/dL (3.4-5.0); ALKALINE PHOSPHATASE 59 U/L (46-116); ALT (SGPT) 36 U/L (10-68); BILIRUBIN - TOTAL 0.87 mg/dL (0.2-1.3); CALC OSMOLALITY 291 mosm/kg (275-300); CALCIUM 8.2 mg/dL (8.5-10.1); CARBON DIOXIDE 28.3 mmol/L (21.0-32.0); CHLORIDE - SERUM 109 mmol/L (98-107); CREATININE - SERUM 0.7 mg/dL (0.6-1.3); GLUCOSE 119 mg/dL (74-106); POTASSIUM - SERUM 3.3 mmol/L (3.5-5.1); PROTEIN - SERUM 5.5 g/dL (6.4-8.2); SODIUM 146 mmol/L (136-145); UREA NITROGEN 12 mg/dL (7-18); eGFR NON AFRICAN AMERICAN 89 mL/min (90-120)
[2018-11-19 06:54] LABS: HEMATOCRIT 33.2 % (36.0-48.0); HEMOGLOBIN 11.4 g/dL (12-16); MCH 30.8 pg (26.0-34.0); MCHC 34.3 g/dL (31.0-37.0); MCV 89.7 fL (80.0-100.0); MEAN PLATELET VOLUME 9.9 fL (7.4-10.4); RBC 3.7 10x6/uL (4.00-5.40); RDW 13.2 % (11.5-14.5); WBC 8.4 10x3/uL (4.8-10.8)
--- NOTE | 2018-11-19 10:50 | NUR ---
0715-RECIEVED PER FLOW SHEET-AWAKE AND ALERT-DENIES ANY FURTHER PAIN-STATES NOTICED EASIER TO TAKE A DEEP BREATH-SR ON MONITOR-AMBULATING WITHOUT DIFFICULTY 1000-AMBULATING IN HALLWAY WITH
--- NOTE | 2018-11-19 18:20 | NUR ---
1330-PT UP IN CHAIR-DR NEGRO AT [facility]-PACER WIRES REMOVED BY SAME-DIRECTED TO STAY IN CHAIR FOR 30MIN 1430-R IJ D/C'D DIRECTED BY DR NEGRO-PER PP
--- NOTE | 2018-11-19 19:00 | NUR ---
REPORT RECIEVED, SHIFT ASSESSMENT COMPLETE, PLEASE SEE FLOW SHEETS FOR DETAILS. UP IN CHAIR, AWAKE, ALERT, CONTENT. DENIES PAIN/NEEDS. STATES HAD A GREAT DAY. LUNGS CLEAR, RA. S1S2 HEARD, RRR NOTED ON CM, PPP. 1+ EDEMA NOTED IN HANDS/FEET. MOVES ALL EXTREMETIES. BS ACTIVE X4. HEMODYNAMICALLY STABE ATT, CHAIR LOCKED, CALL LIGHT IN REACH. WILL CPOC.
--- NOTE | 2018-11-19 20:33 | NUR ---
TOLERATED PO MEDS WELL. WILL CPOC.
--- NOTE | 2018-11-19 21:08 | NUR ---
IN BED NOW, RESTING. DENIES PAIN/NEEDS. HEMODYNAMICALLY STABLE. BEDLOW AND LOCKED, CALL LIGHT IN REACH. WILL CPOC.
--- NOTE | 2018-11-19 23:02 | NUR ---
REASSESSMENT COMPLETE, PLEASE SEE FLOW SHEETS FOR DETAILS. NO ACUTE CHANGES FROM PREVIOUS ASSESSMENT TO NOTE. DENIES PAIN/NEEDS ATT. HEMODYNAMICALLY STABE, BED LOW AND LOCKED, CALL LIGHT IN REACH. WILL CPOC.
[2018-11-20] VITALS (12 sets, daily range): BP systolic 104–144; BP diastolic 40–89
--- NOTE | 2018-11-20 01:03 | NUR ---
RESTING, HEMODYNAMICALLY STABLE. NO S&S ACUTE DISTRESS TO NOTE. BED LOW AND LOCKED, CALL LIGHT IN REACH. WILL CPOC.
--- NOTE | 2018-11-20 03:00 | NUR ---
REASSESSMENT COMPLETE, PLEASE SEE FLOW SHEETS FOR DETAILS. NO ACUTE CHANGES FROM PREVIOUS ASSESSMENT TO NOTE. DENIES PAIN/NEEDS ATT. HEMODYNAMICALLY STABLE, BED LOW AND LOCKED, CALL LIGHT IN REACH. WILL CPOC.
--- NOTE | 2018-11-20 05:00 | NUR ---
PATIENT UP WALKING UNIT. TOLERATING WELL. WALKING WITH HER. DENIES ANY PAIN/NEEDS ATT. WILL CPOC.
[2018-11-20 05:56] LABS: HEMOGLOBIN 11.8 g/dL (12-16); MCH 30.7 pg (26.0-34.0); MCHC 33.7 g/dL (31.0-37.0); MCV 91.1 fL (80.0-100.0); MEAN PLATELET VOLUME 9.7 fL (7.4-10.4); RBC 3.84 10x6/uL (4.00-5.40); RDW 13.4 % (11.5-14.5); WBC 8.1 10x3/uL (4.8-10.8)
[2018-11-20 06:36] LABS: ALBUMIN 2.4 g/dL (3.4-5.0); ALKALINE PHOSPHATASE 58 U/L (46-116); ALT (SGPT) 30 U/L (10-68); BILIRUBIN - TOTAL 0.72 mg/dL (0.2-1.3); CALC OSMOLALITY 291 mosm/kg (275-300); CALCIUM 8.4 mg/dL (8.5-10.1); CARBON DIOXIDE 25.5 mmol/L (21.0-32.0); CHLORIDE - SERUM 110 mmol/L (98-107); CREATININE - SERUM 0.8 mg/dL (0.6-1.3); GLUCOSE 113 mg/dL (74-106); PROTEIN - SERUM 5.7 g/dL (6.4-8.2); SODIUM 147 mmol/L (136-145); UREA NITROGEN 11 mg/dL (7-18); eGFR NON AFRICAN AMERICAN 76 mL/min (90-120)
[2018-11-20] MEDS ORDERED: AMIODARONE HCL200 MG PO (12:30)
--- NOTE | 2018-11-20 15:00 | NUR ---
0715-RECIEVED AWAKE AND ALERT -AMBULATING EASILY IN ROOM-SR ON MONITOR 1030-AMBULATING IN HALLWAY PRESENT 1230-DR NEGRO SPOKEWITH PT AND IN DETAIL REGARDING POST OP INSTRUCTIONS: DIRECTED TO ELEVATE LEGS ON PILLOWS WHEN LYING IN BED, CHECK BLOOD PRESSURE THROUGHOUT DAY AND CALL OFFICE IF STARTS GETTING HIGH-INFORMED WHICH MEDICATIONS TO TAKE AT HOME AND SCRIPT VIA COMPUTER TO [facility]-PT CONFIRMED THAT IS THE CORRECT ONE 1330-REMOVED CHEST INCISION DRG AND INCISION VIEWED BY -WELL INTACT AND NO DRAINAGE-INFORMED SURGICAL GLUE:NO SOAP ROUGH TOWELLING, LOTIONS OINTMENT OR GELS TO INCISION LINE-WILL DEGRADE GLUE SOONER-DO NOT PICK OFF. PROVIDED WITH TELEPHONE NUMBERS TO CALL FOR QUESTIONS AND CONCERNS PT DISCHARGED IN CARE OF
--- NOTE | 2018-11-21 10:06 | MORECARE ---
CASE MANAGEMENT DISCHARGE SUMMARY PATIENT: STEVE HANCOCK UNIT: [id number] ADM DATE: 11/15/18 AGE: 68 : 52 SEX: F ROOM/BED: D.06 AUTHOR: ARLETTE,DOC PHYSICIAN: REFERRING PHYSICIAN: SOLO NEGRO MD DATE OF SERVICE: 11/21/18 Discharge Plan Patient Name: STEVE HANCOCK Facility: [facility]:[place] : 1950 Planned Disposition: Home Anticipated Discharge Date: Discharge Date: 11/20/2018 Expected LOS: Initial Reviewer: [email or web address] Initial Review Date: 11/15/2018 Generated: 11/21/18 11:06 am Comments DCP- Discharge Planning Updated by [email or web address]: Rebeka Sparrow on 11/17/18 11:[address] Patient Name: STEVE HANCOCK Admission Status: Elective Accout number: [id number] Admission Date: 11-15-2018 : 1950 Admission Diagnosis: Attending: SOLO NEGRO Current LOS: 2 Anticipated DC Date: Planned Disposition: Home Primary Insurance: [facility] [employer] Discharge Planning Comments: CM met with patient at bedside after obtaining verbal consent. Patient states she plans on returning home after discharge with her . Patient states she will have family transport her home via private vehicle. Patient denies any discharge needs at this time. CM will continue to follow and assist as needed for discharge planning / needs. Container Washer: Rebeka Sparrow DCPIA - Discharge Planning Initial Assessment Updated by [email or web address]: Rebeka Sparrow on 11/17/18 12:02 pm * Is the patient Alert and Oriented? Yes * How many steps to enter\exit or inside your home? * PCP LUNA ESCALERA * Pharmacy [facility] * Preadmission Environment Home with Family * ADLs Independent * Equipment Walker * Other Equipment BSC * List name and contact numbers for known caregivers / representatives who currently or will assist patient after discharge: MI HANCOCK - - [phone] * Verbal permission to speak to the caregivers and representatives has been obtained from the patient. N/A * Community resources currently utilized None * Additional services required to return to the preadmission environment? No * Can the patient safely return to the preadmission environment? Yes * Has this patient been hospitalized within the prior 30 days at any hospital? No Last DP export: 11/17/18 11:04 a Patient Name: STEVE HANCOCK Page [id number] at 1006 All edits/amendments must be made on the electronic document DICTATION DATE: 11/21/181004 INTEGRATION PROJECT MANAGER: ZENY 11/21/18 1005 RPT#: [id number] DC DATE:11/20/18 STATUS: DIS IN [facility] [address] [place] [address] END OF REPORT
== END 2018-11-20 15:08 | disposition home or self-care (01) | DRG 236 ==
LOC: D.SDCHOLD 07:30 → D.CVICU 11-15 05:00 → D.SDCHOLD 11-15 07:30 → D.CVICU 11-15 08:51
PROVIDERS: ADMIT Thoracic Surgery (Cardiothoracic Vascular Surgery)
PROC: 021009W Bypass Coronary Artery, One Artery from Aorta with Autologous Venous Tissue, Open Approach (ICD-10-PCS; 2018-11-15)
PROC: 06BP0ZZ Excision of Right Saphenous Vein, Open Approach (ICD-10-PCS; 2018-11-15)
PROC: 5A1221Z Performance of Cardiac Output, Continuous (ICD-10-PCS; 2018-11-15)
PROC: B24BZZ4 Ultrasonography of Heart with Aorta, Transesophageal (ICD-10-PCS; 2018-11-15)
PROC: 02100Z9 Bypass Coronary Artery, One Artery from Left Internal Mammary, Open Approach (ICD-10-PCS; principal; 2018-11-15 07:30)
DX: I25.10 Atherosclerotic heart disease of native coronary artery without angina pectoris (principal); J90 Pleural effusion, not elsewhere classified; E11.9 Type 2 diabetes mellitus without complications; E78.5 Hyperlipidemia, unspecified; I10 Essential (primary) hypertension; Z87.891 Personal history of nicotine dependence; E87.6 Hypokalemia; I95.89 Other hypotension

== ENCOUNTER 2018-12-01 08:55 | Emergency (ER) | payer MEDICARE ==
[~2018-12-01] VITALS: Ht 157.5 cm; Wt 66.4 kg
[~2018-12-01 08:55] MED LIST changes: +AMIODARONE HCL200 MG PO; +VITAMIN D31000 UNI2 PO
[2018-12-01 09:12] VITALS: Ht 157.5 cm; Wt 66.4 kg
[2018-12-01 09:33] LABS: BASOPHILS 1.5 % (0-2); EOSINOPHILS 6.3 % (0-7); HEMATOCRIT 41.6 % (36.0-48.0); HEMOGLOBIN 14.1 g/dL (12-16); IMMATURE GRANULOCYTES 0.1 % (0-5); LYMPHOCYTES 24.3 % (15-50); MCH 30.9 pg (26.0-34.0); MCHC 33.9 g/dL (31.0-37.0); MCV 91.2 fL (80.0-100.0); MEAN PLATELET VOLUME 9.7 fL (7.4-10.4); MONOCYTES 10.2 % (2-11); NEUTROPHILS 57.6 % (40-80); RBC 4.56 10x6/uL (4.00-5.40); WBC 6.9 10x3/uL (4.8-10.8)
[2018-12-01 09:34] LABS: PLATELET COUNT 486 10x3/uL (130-400)
[2018-12-01 09:47] LABS: ALBUMIN 3.2 g/dL (3.4-5.0); ALKALINE PHOSPHATASE 116 U/L (46-116); ALT (SGPT) 19 U/L (10-68); BILIRUBIN - TOTAL 0.51 mg/dL (0.2-1.3); CALC OSMOLALITY 283 mosm/kg (275-300); CALCIUM 9.3 mg/dL (8.5-10.1); CARBON DIOXIDE 25.8 mmol/L (21.0-32.0); CHLORIDE - SERUM 105 mmol/L (98-107); CREATININE - SERUM 0.9 mg/dL (0.6-1.3); GLUCOSE 143 mg/dL (74-106); POTASSIUM - SERUM 3.6 mmol/L (3.5-5.1); PROTEIN - SERUM 7.3 g/dL (6.4-8.2); SODIUM 141 mmol/L (136-145); UREA NITROGEN 14 mg/dL (7-18); eGFR NON AFRICAN AMERICAN 66 mL/min (90-120)
[2018-12-01 10:01] LABS: CKMB 0.5 U/L (0.0-3.6); CREATINE KINASE 33 UL (21-215)
[2018-12-01] MEDS ORDERED: ACEBUTOLOL HCL200 MG PO (11:38)
[2018-12-01 13:01] VITALS: BP 127/69
[2018-12-01] MEDS ORDERED: FISH OIL 1,0001 CA1 PO (22:57)
[2018-12-01] MEDS ORDERED: DULCOLAX5 MG PO (22:57)
[2018-12-01] MEDS ORDERED: STOOL SOFTENER100 M1 PO (22:58)
[2018-12-02] MEDS ORDERED: BETAPACE 80 MG80 MG PO (10:51)
== END 2018-12-01 11:58 | disposition home or self-care (01) ==
LOC: D.ER 08:55
PROVIDERS: Emergency Medicine
DX: I48.92 Unspecified atrial flutter (principal)

== ENCOUNTER 2018-12-01 19:10 | Observation (INO) | payer MEDICARE ==
[~2018-12-01] VITALS: Ht 157.5 cm; Wt 66.8 kg
--- NOTE | 2018-12-01 20:53 | NUR ---
REPORT FROM TERRA PEREZ.
[2018-12-01 20:54] LABS: BASOPHILS 1.9 % (0-2); EOSINOPHILS 3.8 % (0-7); HEMATOCRIT 39.7 % (36.0-48.0); HEMOGLOBIN 13.2 g/dL (12-16); IMMATURE GRANULOCYTES 0.2 % (0-5); LYMPHOCYTES 34.5 % (15-50); MCH 30.5 pg (26.0-34.0); MCHC 33.2 g/dL (31.0-37.0); MCV 91.7 fL (80.0-100.0); MEAN PLATELET VOLUME 9.6 fL (7.4-10.4); MONOCYTES 11.2 % (2-11); NEUTROPHILS 48.4 % (40-80); PLATELET COUNT 482 10x3/uL (130-400); RBC 4.33 10x6/uL (4.00-5.40); RDW 14.1 % (11.5-14.5); WBC 8.5 10x3/uL (4.8-10.8)
[2018-12-01 21:08] LABS: ALKALINE PHOSPHATASE 108 U/L (46-116); ALT (SGPT) 17 U/L (10-68); BILIRUBIN - TOTAL 0.33 mg/dL (0.2-1.3); CALC OSMOLALITY 287 mosm/kg (275-300); CALCIUM 8.9 mg/dL (8.5-10.1); CARBON DIOXIDE 23.8 mmol/L (21.0-32.0); CHLORIDE - SERUM 107 mmol/L (98-107); CREATININE - SERUM 0.9 mg/dL (0.6-1.3); GLUCOSE 121 mg/dL (74-106); POTASSIUM - SERUM 3.8 mmol/L (3.5-5.1); PROTEIN - SERUM 6.7 g/dL (6.4-8.2); SODIUM 143 mmol/L (136-145); UREA NITROGEN 17 mg/dL (7-18); eGFR NON AFRICAN AMERICAN 66 mL/min (90-120)
[2018-12-01 21:16] LABS: INR 1.06 (0.85-1.17); PROTIME 13.3 SECONDS (11.6-15.0)
[2018-12-01 21:19] LABS: CREATINE KINASE 35 UL (21-215); MAGNESIUM - SERUM 2.1 mg/dL (1.8-2.4); TROPONIN-I < 0.017 ng/mL (0.000-0.060)
--- NOTE | 2018-12-01 21:20 | NUR ---
ARRIVED TO FLOOR VIA WHEELCHAIR, ACCOMPANIED BY HOSPITAL STAFF AND SPOUSE. ORIENTED TO UNIT AND PLACED ON TELEMETRY 88 FLUTTER WITH AFIB AND SINUS BEATS ON TELEMETRY. RIGHT FOREARM SALINE LOCKED. CALL LIGHT IN REACH. SEE NURSE ASSESSMENT.
[2018-12-01 22:32] VITALS: Ht 157.5 cm; Wt 66.8 kg
[2018-12-01] MEDS ORDERED: FISH OIL 1,0001 CA1 PO (22:57)
[2018-12-01] MEDS ORDERED: DULCOLAX5 MG PO (22:57)
[2018-12-01] MEDS ORDERED: STOOL SOFTENER100 M1 PO (22:58)
[2018-12-02] VITALS: BP 122/58
--- NOTE | 2018-12-02 03:04 | NUR ---
53 SB NOTED ON TELEMETRY
[2018-12-02 03:12] LABS: BASOPHILS 1.6 % (0-2); EOSINOPHILS 5.3 % (0-7); HEMATOCRIT 36.9 % (36.0-48.0); HEMOGLOBIN 12.4 g/dL (12-16); IMMATURE GRANULOCYTES 0.2 % (0-5); MCH 30.9 pg (26.0-34.0); MCHC 33.6 g/dL (31.0-37.0); MEAN PLATELET VOLUME 9.6 fL (7.4-10.4); MONOCYTES 12.3 % (2-11); NEUTROPHILS 47.6 % (40-80); PLATELET COUNT 445 10x3/uL (130-400); RBC 4.01 10x6/uL (4.00-5.40); RDW 14.4 % (11.5-14.5); WBC 8.2 10x3/uL (4.8-10.8)
[2018-12-02 03:51] LABS: ALBUMIN 2.7 g/dL (3.4-5.0); ALKALINE PHOSPHATASE 98 U/L (46-116); ALT (SGPT) 16 U/L (10-68); BILIRUBIN - TOTAL 0.39 mg/dL (0.2-1.3); CALC OSMOLALITY 285 mosm/kg (275-300); CALCIUM 8.7 mg/dL (8.5-10.1); CARBON DIOXIDE 26.6 mmol/L (21.0-32.0); CHLORIDE - SERUM 106 mmol/L (98-107); CKMB 0.7 U/L (0.0-3.6); CREATINE KINASE 27 UL (21-215); CREATININE - SERUM 0.8 mg/dL (0.6-1.3); GLUCOSE 119 mg/dL (74-106); POTASSIUM - SERUM 4.2 mmol/L (3.5-5.1); PROTEIN - SERUM 6.2 g/dL (6.4-8.2); SODIUM 142 mmol/L (136-145); TROPONIN-I 0.021 ng/mL (0.000-0.060); UREA NITROGEN 17 mg/dL (7-18); eGFR NON AFRICAN AMERICAN 76 mL/min (90-120)
[2018-12-02 05:00] VITALS: BP 99/51
--- NOTE | 2018-12-02 07:30 | NUR ---
RECEIVESBAND AT BEDSIDED PT IN BED AAOX4 RESP UNLABORED DENIES ANY NEEDS OR DISCOMFORT NAD NOTED
[2018-12-02 08:45] VITALS: BP 107/45
[2018-12-02 08:56] LABS: CKMB 0.9 U/L (0.0-3.6); CREATINE KINASE 26 UL (21-215); TROPONIN-I < 0.017 ng/mL (0.000-0.060)
[2018-12-02] MEDS ORDERED: BETAPACE 80 MG80 MG PO (10:51)
--- NOTE | 2018-12-02 12:00 | NUR ---
REVIEWED DISCHARGE INSTRUCTIONS WITH PT STATES UNDERSTANDING COPY GIVEN DCD SALINE LOCK TO RFA WITH IV CATHETER INTACT SITE FREE OF REDNESS OR EDEMA PT DISCHARGED HOME LEFT UNIT VIA W/C IN STABLE CONDITION WITH ALL PERSONAL BELONGINGS
--- NOTE | 2018-12-02 19:48 | MORECARE ---
CASE MANAGEMENT DISCHARGE SUMMARY PATIENT: STEVE HANCOCK UNIT: [id number] ADM DATE: 12/01/18 AGE: 68 : 52 SEX: F ROOM/BED: D.9495 AUTHOR: MAURICE CHONG PHYSICIAN: REFERRING PHYSICIAN: NESTOR HUFF MD DATE OF SERVICE: 12/02/18 Discharge Plan Patient Name: STEVE HANCOCK [facility] [facility] 1950 Planned Disposition: Home Anticipated Discharge Date: 12/02/18 Discharge Date: 12/02/2018 Expected LOS: 1 Initial Reviewer: [email or web address] Initial Review Date: 12/02/2018 Generated: 12/02/18 8:48 pm Patient Name: STEVE HANCOCK Page [id number] at 1948 All edits/amendments must be made on the electronic document DICTATION DATE: 12/02/181946 KNOBBER: ZENY 12/02/181946 RPT#: [id number] DC DATE:12/02/18 STATUS: DIS IN [facility] [address] [place] [address] END OF REPORT
--- NOTE | 2018-12-08 17:10 | DS ---
PATIENT:STEVE HANCOCK :54 MEDICAL RECORD: [id number] DISCHARGE SUMMARY ADMISSION DATE: 12/01/18 DISCHARGE DATE: 12/02/18 DISCHARGE DIAGNOSES: 1. Atrial fibrillation. 2. Coronary artery disease. 3. Status post coronary artery bypass graft surgery. 4. Hypertension. HOSPITAL COURSE: Mrs. Hancock presents with recurrent atrial fibrillation after heart surgery, found to be in atrial fibrillation, had 1 dose of sotalol, converted to sinus rhythm and was discharged home on sotalol 80 mg b.i.d. Will follow up with [facility] as previously scheduled. TRANSINT:[id number] Voice Confirmation ID: [id number] DOCUMENT ID: [id number] NESTOR HUFF MD at 1710 CC: [id number] DICTATION DATE: 12/02/18 1009 CREDIT AUTHORIZER: 12/03/18 0528 DIS IN 12/02/18 [facility] [address] [place] [address]
== END 2018-12-02 12:00 | disposition home or self-care (01) ==
LOC: D.ER 19:10 → OBSVTIME 20:20 → D.ER 20:20 → D.M2 20:20
PROVIDERS: Family Medicine; ADMIT Internal Medicine Interventional Cardiology; ATTEND Internal Medicine Interventional Cardiology
DX: I48.92 Unspecified atrial flutter (principal); E11.9 Type 2 diabetes mellitus without complications; I10 Essential (primary) hypertension; F41.9 Anxiety disorder, unspecified; I25.10 Atherosclerotic heart disease of native coronary artery without angina pectoris; Z95.1 Presence of aortocoronary bypass graft; Z87.891 Personal history of nicotine dependence

== ENCOUNTER → 2018-12-14 13:47 | Outpatient (CLI) | payer MEDICARE ==
[~2018-12-14 13:47] MED LIST changes: +BETAPACE 80 MG80 MG PO; +DULCOLAX5 MG PO; +FISH OIL 1,0001 CA1 PO; +STOOL SOFTENER100 M1 PO
[2018-12-14 14:36] LABS: HEMATOCRIT 39.7 % (36.0-48.0); HEMOGLOBIN 13.3 g/dL (12-16); MCH 31.1 pg (26.0-34.0); MCHC 33.5 g/dL (31.0-37.0); MEAN PLATELET VOLUME 10.2 fL (7.4-10.4); RBC 4.27 10x6/uL (4.00-5.40); RDW 14.5 % (11.5-14.5); WBC 6.7 10x3/uL (4.8-10.8)
[2018-12-14 15:01] LABS: ALBUMIN 3.2 g/dL (3.4-5.0); ALKALINE PHOSPHATASE 121 U/L (46-116); ALT (SGPT) 19 U/L (10-68); BILIRUBIN - TOTAL 0.39 mg/dL (0.2-1.3); CALC OSMOLALITY 290 mosm/kg (275-300); CALCIUM 8.8 mg/dL (8.5-10.1); CARBON DIOXIDE 28.9 mmol/L (21.0-32.0); CHLORIDE - SERUM 107 mmol/L (98-107); CREATININE - SERUM 0.8 mg/dL (0.6-1.3); GLUCOSE 138 mg/dL (74-106); POTASSIUM - SERUM 3.6 mmol/L (3.5-5.1); PROTEIN - SERUM 6.7 g/dL (6.4-8.2); SODIUM 144 mmol/L (136-145); UREA NITROGEN 17 mg/dL (7-18); eGFR NON AFRICAN AMERICAN 76 mL/min (90-120)
== END | disposition home or self-care (01) ==
LOC: D.LAB 09:00
PROVIDERS: Orthopaedic Surgery
DX: J91.8 Pleural effusion in other conditions classified elsewhere (principal); D64.9 Anemia, unspecified